=== PATIENT | male | born 1970 | race Caucasian/White ===

== ENCOUNTER 2016-04-23 13:34 | Emergency (ER) | payer MEDICAID, OTHER ==
[~2016-04-23] VITALS: Ht 188 cm; Wt 108.9 kg
[~2016-04-23 13:34] MED LIST: CYCL10TA9 PO; HYDR-3816 PO; HYDR1TAB PO; NAPR-243 PO; NAPR250T34 PO; NAPR500T PO; OSLT75CRX PO; PRD20T PO; SLF10OP15 OP; SULF-222 PO; SULF1TAB35 PO; SULF1TAB38 PO; TRAM50TA2 PO; TRM50T PO; [UNRECOGNIZED DRUG - CODE] OD
[2016-04-23] MEDS ORDERED: HYDR-757 PO (13:48)
[2016-04-23] MEDS ORDERED: NAPR500T PO (13:48)
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
[2016-04-23 13:58] VITALS: BP 118/111
== END 2016-04-23 13:54 | disposition home or self-care (01) ==
LOC: EDUNIT# 13:34 → ER 13:37
DX: Z76.0 Encounter for issue of repeat prescription (principal); G89.18 Other acute postprocedural pain
CPT/HCPCS: 99283

== ENCOUNTER 2016-04-25 17:07 | Emergency (ER) | payer MEDICAID, OTHER ==
[~2016-04-25] VITALS: Ht 188 cm; Wt 108.9 kg
[~2016-04-25 17:07] MED LIST changes: +HYDR-757 PO
[2016-04-25] MEDS ORDERED: CEFD300C3 PO (17:19)
--- NOTE | 2016-04-25 17:19 | ED Lower Extremity ---
General Stated Complaint: RIGHT LEG INJ Source: patient Exam Limitations: no limitations History of Present Illness Time seen by provider: 17:15 Initial Comments To ER with right leg injury. He had a tibial plateau fracture with subsequent compartment syndrome and fasciotomy and placement of external fixation in [facility] on 04/13/16. He lives here and has traveled back. I saw him 2 days ago for a request to refill his oxycodone. He ultimately Hydrocodone No. 10 and did fill his Lovenox injections 40 mg daily prescribed for DVT prophylaxis by his surgeon in [place]. Today, he slipped and fell and now has pain at the insertion site of the external fixator pins in the tibia. He reports some slight redness to his leg. He states that he has been taking the Lovenox injections and Kristin confirmed that he did fill these. Onset: just prior to arrival Severity: moderate Pain/Injury Location: right leg Method of Injury: fell Modifying Factors: Worse With Movement Allergies and Home Medications Allergies Coded Allergies: No Known Drug Allergies (Unverified , 01/22/10) Home Medications Cefdinir 300 Mg Capsule #14 300 MG PO BID Prescribed by: MARK MORRIS on 04/25/16 1719 Hydrocodone/Acetaminophen 1 Each Tablet #10 1 EACH PO Q4H PRN PRN PAIN Do not fill under any circumstances unless his Lovenox prescription is also filled Prescribed by: MARK MORRIS on 04/23/16 1348 Naproxen 500 Mg Tablet #20 500 MG PO BID PRN PRN PAIN Prescribed by: BRET THAPA on 12/13/14 1442 Naproxen 500 Mg Tablet #30 500 MG PO BID Prescribed by: MARK MORRIS on 04/23/16 1348 Constitutional: see HPINo chills EENTM: see HPI Respiratory: no symptoms reported Cardiovascular: no symptoms reported Genitourinary: no symptoms reported Skin: no symptoms reported Psychiatric/Neurological: No Symptoms Reported Past Ueijewl-Lvwapp-Hjslee Hx Patient Social History Former Smoker/When Quit: September 05, 2014 Recent Foreign Travel: No Contact w/Someone Who Travel: No Recent Hopitalizations: Yes (2003) Immunizations Up To Date Tetanus Booster (TDap): Less than 5yrs Date of Influenza Vaccine: Jan 12, 2014 Seasonal Allergies Seasonal Allergies: No Surgeries HX Surgeries: Yes Surgeries: Abdominal, Bowel Surgery, Gallbladder, Orthopedic Respiratory Hx Respiratory Disorders: No Cardiovascular Hx Cardiac Disorders: No Neurological Hx Neurological Disorders: No Reproductive System Hx Reproductive Disorders: No Sexually Transmitted Disease: No Genitourinary Hx Genitourinary Disorders: No Gastrointestinal Hx Gastrointestinal Disorders: Yes (HEPATITIS--UNKNOWN TYPE) Gastrointestinal Disorders: Hepatitis Musculoskeletal Hx Musculoskeletal Disorders: Yes (SACRAL FX) Endocrine Hx Endocrine Disorders: No HEENT HX ENT Disorders: Yes (states he is hard of hearing left ear) Hearing Impairment: Hard of Hearing Cancer Hx Cancer: No Psychosocial Hx Psychiatric Problems: Yes (OVERDOSES) Behavioral Health Disorders: Suicide Attempts Integumentary HX Skin/Integumentary Disorder: Yes (MULTIPLE ABSCESSES) Blood Transfusions Hx Blood Disorders: No Family Medical History Family Medial History: Family history: Arthritis 03 FATHER 03 MOTHER Myocardial infarction 03 MOTHER Physical Exam Vital Signs Vital Sign - Last 12Hours 04/25/16 17:10 Temp 98.0 Pulse 89 Resp 18 B/P 169/104 Pulse Ox 97 O2 Delivery Room Air Capillary Refill : General Appearance: WD/WN no apparent distress HEENT: PERRL/EOMI normal ENT inspection Neck: non-tender full range of motion Respiratory: no respiratory distress no accessory muscle use Hips: bilateral hip non-tender, bilateral hip normal inspection, bilateral hip normal range of motion Legs: right leg other (slight erythema around the pins that insert to the tibia. No drainage from around the pens or from the medial fasciotomy incision which remains sutured closed and without erythema. Dorsalis pedis pulse is +2 capillary refill of the toes less than 2 seconds.) Knees: bilateral knee non-tender, bilateral knee normal inspection, bilateral knee normal range of motion Ankles: bilateral ankle non-tender, bilateral ankle normal inspection, bilateral ankle normal range of motion Feet: bilateral foot non-tender, bilateral foot normal inspection, bilateral foot normal range of motion Neurologic/Tendon: normal sensation normal motor functions Neurologic/Psychiatric: alert normal mood/affect oriented x 3 Skin: normal color warm/dry Progress/Results/Core Measures Results/Orders My Orders Orders-MARK MORRIS APRN Tibia/Fibula, Right, 2 Views (04/25/16 17:14) Vital Signs/I&O Vital Sign - Last 12Hours 04/25/16 17:10 Temp 98.0 Pulse 89 Resp 18 B/P 169/104 Pulse Ox 97 O2 Delivery Room Air Diagnostic Imaging Diagonstic Imaging: Xray Comments NAME: BRANDON AKERS [facility] REC#: [id number] PT STATUS: REG ER : 1970 PHYSICIAN: MARK MORRIS APRN ADMIT DATE: 04/25/16/ER Draft Date of Exam:04/25/16 TIBIA/FIBULA, RIGHT, 2 VIEWS EXAMINATION: Right tibia and fibula. INDICATION: Fell. FINDINGS: AP and lateral views were obtained. There are no prior studies available for comparison. There is a comminuted slightly displaced fracture of the proximal tibia. No other fracture or acute bony abnormality is identified. There is an orthopedic external fixation device along the anterior aspect of the tibia. Skin ashlee are also seen. IMPRESSION: 1. There is a comminuted slightly displaced fracture of the proximal tibia with an external fixation device in place. 2. There is no acute bony abnormality identified otherwise. Dictated on workstation # [id number] Dict: 04/25/16 1744 Trans: 04/25/16 1750 [id number] Interpreted by: LUIS ENRIQUE BARRON MD Electronically signed by: Departure Impression Impression: Primary Impression: Postoperative pain Disposition: HOME, SELF-CARE Condition: Stable Departure-Patient Inst. Decision time for Depature: 17:18 Referrals: [facility] (PCP/Family) Primary Care Physician Patient Instructions: NO INSTRUCTIONS GIVEN Add. Discharge Instructions: 1. Continue the current medications and start the antibiotics 2. Return to ER for any concerns 3. Follow-up with a local orthopedic surgeon from the list provided to you 2 days ago Scripts Cefdinir 300 Mg [id number] Mg PO BID #14 CAP Prov:MARK MORRIS APRN 04/25/16 MARK MORRIS APRN Apr 25, 2016 17:19
--- NOTE | 2016-04-25 17:50 | Diagnostic Imaging Report ---
EXAMINATION: Right tibia and fibula. INDICATION: Fell. FINDINGS: AP and lateral views were obtained. There are no prior studies available for comparison. There is a comminuted slightly displaced fracture of the proximal tibia. No other fracture or acute bony abnormality is identified. There is an orthopedic external fixation device along the anterior aspect of the tibia. Skin ashlee are also seen. IMPRESSION: 1. There is a comminuted slightly displaced fracture of the proximal tibia with an external fixation device in place. 2. There is no acute bony abnormality identified otherwise. Dictated by: Dictated on workstation # [id number]
[2016-04-25 17:56] VITALS: BP 169/104
== END 2016-04-25 17:56 | disposition home or self-care (01) ==
LOC: EDUNIT# 17:07 → ER 17:08
DX: G89.18 Other acute postprocedural pain (principal)
CPT/HCPCS: 73590

== ENCOUNTER 2016-04-27 14:36 | Emergency (ER) | payer MEDICAID ==
[~2016-04-27] VITALS: Ht 188 cm; Wt 81.6 kg
[~2016-04-27 14:36] MED LIST changes: +CEFD300C3 PO
[2016-04-27] MEDS ORDERED: KETOROLAC 60 MG/2 ML VIAL IM ONE ×2 (14:49→19:00)
[2016-04-27 15:22] VITALS: BP 141/88
== END 2016-04-27 15:22 | disposition home or self-care (01) ==
LOC: ER 14:36 → EDUNIT# 14:36 → ER 15:22
DX: S82.142D Displaced bicondylar fracture of left tibia, subsequent encounter for closed fracture with routine healing (principal); F15.10 Other stimulant abuse, uncomplicated
CPT/HCPCS: 80306; 96372; 99282

== ENCOUNTER 2016-05-27 18:35 | Emergency (ER) | payer MEDICAID, OTHER ==
[~2016-05-27] VITALS: Ht 188 cm; Wt 95.3 kg
[2016-05-27] MEDS ORDERED: ASPI-808 PO (19:07)
[2016-05-27] MEDS ORDERED: ACET325T38 PO (19:07)
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
--- NOTE | 2016-05-27 20:59 | Diagnostic Imaging Report ---
INDICATION: External fixator fracture COMPARISON: 04/25/16 FINDINGS: Four views of the right tibia and fibula demonstrate external fixator device in place. Proximal tibia fracture is unchanged. The visualized ankle mortise is intact. IMPRESSION: 1. External fixator within the mid tibia. 2. Stable fracture. Dictated by: Dictated on workstation # [id number]
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
[2016-05-27] MEDS ORDERED: SULF1TAB35 PO (21:14)
[2016-05-27] MEDS ORDERED: MINO100C2 PO (21:14)
[2016-05-27 21:22] VITALS: BP 132/87
== END 2016-05-27 21:22 | disposition home or self-care (01) ==
LOC: EDUNIT# 18:35 → ER 18:37
DX: L03.115 Cellulitis of right lower limb (principal); S82.101D Unspecified fracture of upper end of right tibia, subsequent encounter for closed fracture with routine healing; Z97.8 Presence of other specified devices; Z98.890 Other specified postprocedural states; F17.210 Nicotine dependence, cigarettes, uncomplicated; Z79.82 Long term (current) use of aspirin; Z79.899 Other long term (current) drug therapy
CPT/HCPCS: 73552; 73590; 87070; 87077; 87186; 87205; 99282

== ENCOUNTER 2016-06-13 05:33 | Outpatient (CLI) | payer MEDICAID ==
[~2016-06-13] VITALS: Ht 188 cm; Wt 98.0 kg
[~2016-06-13 05:33] MED LIST changes: +ACET325T38 PO; +ASPI-808 PO; +MINO100C2 PO
--- OUTSIDE RECORDS SUMMARY | 2016-06-13 05:38 | XMS REPORT | Continuity of Care Document ---
Author Author [facility] Address Unknown Phone Unavailable Allergies Active Description Code Type Severity Reaction Onset Reported/Identified Relationship to Patient Clinical Status Yes No Known Drug Allergies [id number] Drug Allergy Unknown N/ A 10/10/2009 Medications Problems Date Dx Coded Attending Type Code Diagnosis Diagnosed By 10/10/2009 Ot 372.06 10/10/2009 Ot 372.30 10/10/2009 Ot 379.93 02/14/2010 Ot 845.00 02/14/2010 Ot 959.7 02/14/2010 Ot E000.8 02/14/2010 Ot E849.0 02/14/2010 Ot E917.4 12/16/2010 Ot 070.54 CHRONIC HEPATITIS C W/O HEPATIC COMA 12/16/2010 Ot 305.1 TOBACCO USE DISORDER 12/16/2010 Ot 305.20 CANNABIS ABUSE-UNSPEC 12/16/2010 Ot 305.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 ABUSE-UNSPEC 12/16/2010 Ot 977.9 POISON-MEDICINAL AGT NOS 12/16/2010 Ot E849.0 ACCIDENT IN HOME 12/16/2010 Ot E950.5 SUICIDE-DRUG/MEDICIN NOS 01/09/2011 ROSA ISELA TAPIA DO 070.70 HEPATITIS, C VIRUS 01/09/2011 ROSA ISELA TAPIA DO 305.1 NICOTINE DEPENDENCE 01/09/2011 ROSA ISELA TAPIA DO K 305.90 SUBSTANCE USE DISORDERS 01/09/2011 ROSA ISELA TAPIA DO K 780.99 loss of pleasure from usual activities ( anhedonia) 01/09/2011 ROSA ISELA TAPIA DO K V04.81 Vaccines Prophylactic Need Against Influenza 01/09/2011 VLAD KENNY APRN R 070.70 HEPATITIS, C VIRUS 01/09/2011 EFRAÍN GRIMES VLAD R 305.1 NICOTINE DEPENDENCE 01/09/2011 VLAD KENNY APRN R 305.90 SUBSTANCE USE DISORDERS 01/09/2011 VLAD KENNY APRN R 780.99 loss of pleasure from usual activities ( anhedonia) 01/09/2011 EFRAÍN TRAVERTINE INSTALLER, VLAD R V04.81 Vaccines Prophylactic Need Against Influenza 01/09/2011 LEV TORIBIOF, CIRA W 070.70 HEPATITIS, C VIRUS 01/09/2011 LEV TORIBIOKaren, CIRA W 305.1 NICOTINE DEPENDENCE 01/09/2011 LEV TORIBIOF, CIRA W 305.90 SUBSTANCE USE DISORDERS 01/09/2011 LEV [facility], CIRA W 780.99 loss of pleasure from usual activities (anhedonia) 01/09/2011 LEV [facility], CIRA Burk V04.81 Vaccines Prophylactic Need Against Influenza 07/09/2011 TAPIA ROSA ISELA HWANG Roddy 305.00 NONDEPENDENT ALCOHOL ABUSE UNSPECIFIED DRINKING BEHAVIOR 07/09/2011 VLAD KENNY APRN R 305.00 NONDEPENDENT ALCOHOL ABUSE UNSPECIFIED DRINKING BEHAVIOR 07/09/2011 LEV TORIBIO, CIRA W 305.00 NONDEPENDENT ALCOHOL ABUSE UNSPECIFIED DRINKING BEHAVIOR 01/28/2012 Ot 692.9 DERMATITIS NOS 01/28/2012 Ot 782.1 NONSPECIF SKIN ERUPT NEC 12/26/2012 MARK MORRIS TRAVERTINE INSTALLER Ot 274.00 GOUTY ARTHROPATHY, UNSPECIFIED 12/26/2012 MARK MORRIS TRAVERTINE INSTALLER Ot 719.07 JOINT EFFUSION-ANKLE 03/12/2013 BRET GAMEZ Ot 611.0 INFLAM DISEASE OF BREAST 03/12/2013 BRET GAMEZ Ot 611.71 MASTODYNIA 03/14/2013 MARK MORRIS TRAVERTINE INSTALLER Ot 706.2 SEBACEOUS CYST 03/23/2013 NELLIE MELENDEZ DO Ot 611.0 INFLAM DISEASE OF BREAST 05/20/2013 MARK MORRIS TRAVERTINE INSTALLER Ot 305.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 ABUSE-UNSPEC 05/20/2013 MARK MORRIS TRAVERTINE INSTALLER Ot 487.1 FLU W RESP MANIFEST NEC 05/20/2013 MARK MORRIS TRAVERTINE INSTALLER Ot 780.60 FEVER, UNSPECIFIED 09/10/2013 BRET GAMEZ Ot 305.1 TOBACCO USE DISORDER 09/10/2013 BRET GAMEZ Ot 840.9 SPRAIN SHOULDER/ARM NOS 09/10/2013 BRET GAMEZ Ot 923.11 CONTUSION OF ELBOW 09/10/2013 BRET GAMEZ Ot E029.9 OTHER ACTIVITY 09/10/2013 BRET GAMEZ Ot E885.0 FALL FROM (NONMOTORIZED) SCOOTER 01/28/2014 MARK MORRIS APRN Ot 784.0 HEADACHE 05/11/2014 EFRAÍN GRIMES VLAD R V69.9 UNSPECIFIED PROBLEM RELATED TO LIFESTYLE 05/11/2014 LEV TORIBIOMF, CIRA W V69.9 UNSPECIFIED PROBLEM RELATED TO LIFESTYLE 05/30/2014 LEV [facility], CIRA W 296.90 MOOD DISORDER NOS 05/30/2014 LEV TORIBIOF, CIRA W 304.80 SA POLYSUB DEP 09/04/2014 ARIADNE GALARZA MD Ot 805.6 FX SACRUM/COCCYX-CLOSED 09/04/2014 ARIADNE GALARZA MD Ot 959.19 OTH INJURY OF OTHER SITES OF TRUNK 09/04/2014 ARIADNE GALARZA MD Ot E000.8 OTHER EXTERNAL CAUSE STATUS 09/04/2014 ARIADNE GALARZA MD Ot E849.0 ACCIDENT IN HOME 09/04/2014 ARIADNE GALARZA MD Ot E882 FALL FROM BUILDING 09/18/2014 Ot 070.70 09/18/2014 Ot 305.00 09/18/2014 NELLIE MELENDEZ DO Ot 611.72 09/18/2014 KYA BANG MD Ot 883.0 OPEN WOUND OF FINGER 09/18/2014 KYA BANG MD Ot E849.0 ACCIDENT IN HOME 09/18/2014 KYA BANG MD Ot E906.0 DOG BITE 09/18/2014 KYA BANG MD Ot V06.5 TETANUS-DIPHTHERIA [TD][DT] 09/18/2014 Ot 070.70 09/18/2014 Ot 305.00 09/18/2014 NELLIE MELENDEZ DO Ot 611.72 12/07/2014 Ot 070.70 12/07/2014 Ot 305.00 12/07/2014 NELLIE MELENDEZ DO Ot 611.72 12/07/2014 BRET GAMEZ Ot 611.0 INFLAM DISEASE OF BREAST 12/13/2014 BRET GAMEZ Ot 611.0 INFLAM DISEASE OF BREAST 12/26/2014 Ot 070.70 12/26/2014 Ot 305.00 12/26/2014 MELENDEZ NELLIE D Ot 611.72 12/26/2014 Ot 070.70 12/26/2014 Ot 305.00 12/26/2014 MELENDEZ NELLIE HWANG Ot 611.72 02/14/2015 Ot 070.70 02/14/2015 Ot 305.00 02/14/2015 NELLIE MELENDEZ DO Ot 611.72 10/06/2015 ARIADNE GALARZA MD Ot 805.6 FX SACRUM/COCCYX-CLOSED 10/06/2015 ARIADNE GALARZA MD Ot 959.19 OTH INJURY OF OTHER SITES OF TRUNK 10/06/2015 ARIADNE GALARZA MD Ot E000.8 OTHER EXTERNAL CAUSE STATUS 10/06/2015 ARIADNE GALARZA MD Ot E849.0 ACCIDENT IN HOME 10/06/2015 ARIADNE GALARZA MD Ot E882 FALL FROM BUILDING 02/10/2016 Ot 070.70 UNSPECIFIED VIRAL HEPATITIS C WITHOUT HE 02/10/2016 Ot 305.00 ALCOHOL ABUSE-UNSPEC 02/10/2016 NELLIE MELENDEZ DO Ot 611.72 LUMP OR MASS IN BREAST 02/10/2016 Ot 070.70 UNSPECIFIED VIRAL HEPATITIS C WITHOUT HE 02/10/2016 Ot 305.00 ALCOHOL ABUSE-UNSPEC 02/10/2016 NELLIE MELENDEZ DO Ot 611.72 LUMP OR MASS IN BREAST 02/12/2016 TITA REEVES DO, Ot F17.210 NICOTINE DEPENDENCE, CIGARETTES, UNCOMPL 02/12/2016 TITA REEVES DO Ot S10.96XA INSECT BITE OF UNSPECIFIED PART OF NECK, 02/12/2016 TITA REEVES DO Ot S30.861A INSECT BITE (NONVENOMOUS) OF ABDOMINAL W 02/12/2016 TITA REEVES DO, Ot S40.861A INSECT BITE (NONVENOMOUS) OF RIGHT UPPER 02/12/2016 TITA REEVES DO, Ot S40.862A INSECT BITE (NONVENOMOUS) OF LEFT UPPER 02/12/2016 TITA REEVES DO, Ot W57.XXXA BIT/STUNG BY NONVENOM INSECT OTH NONVE 02/12/2016 TITA REEVES DO Ot Y92.[address] OR NOT APPLICABLE 02/12/2016 TITA REEVES DO Ot Y93.H9 ACTVTY,OTH W EXTER PROPERTY LAND [facility] EYE INSTITUTET 02/12/2016 TITA REEVES DO Ot Y99.8 OTHER EXTERNAL CAUSE STATUS 04/24/2016 MARK MORRIS APRN Ot G89.18 OTHER ACUTE POSTPROCEDURAL PAIN 04/24/2016 MARK MORRIS APRN Ot Z76.0 ENCOUNTER FOR ISSUE OF REPEAT PRESCRIPTI 04/25/2016 MARK MORRIS APRN Ot G89.18 OTHER ACUTE POSTPROCEDURAL PAIN 04/26/2016 MARK MORIRS APRN Ot G89.18 OTHER ACUTE POSTPROCEDURAL PAIN 04/27/2016 MARK MORRIS APRN Ot G89.18 OTHER ACUTE POSTPROCEDURAL PAIN 04/27/2016 ARIADNE GALARZA MD Ot F15.10 OTHER STIMULANT ABUSE, UNCOMPLICATED 04/27/2016 ARIADNE GALARZA MD Ot S82.142D DISPL BICONDYLAR FX L TIBIA, SUBS FOR CL 05/27/2016 BRET GAMEZ Ot F17.210 NICOTINE DEPENDENCE, CIGARETTES, UNCOMPL 05/27/2016 BRET GAMEZ Ot L03.115 CELLULITIS OF RIGHT LOWER LIMB 05/27/2016 BRET GAMEZ Ot S82.101D UNSP FX UPPER END OF R TIBIA, SUBS FOR C 05/27/2016 BRET GAMEZ Ot Z79.82 DETENTION (CURRENT) USE OF ASPIRIN 05/27/2016 BRET GAMEZ Ot Z79.899 OTHER DETENTION (CURRENT) DRUG THERAPY 05/27/2016 BRET GAMEZ Ot Z97.8 PRESENCE OF OTHER SPECIFIED DEVICES 05/27/2016 BRET GAMEZ Ot Z98.890 OTHER SPECIFIED POSTPROCEDURAL STATES 05/29/2016 BRET GAMEZ Ot F17.210 NICOTINE DEPENDENCE, CIGARETTES, UNCOMPL 05/29/2016 BRET GAMEZ Ot L03.115 CELLULITIS OF RIGHT LOWER LIMB 05/29/2016 BRET GAMEZ Ot S82.101D UNSP FX UPPER END OF R TIBIA, SUBS FOR C 05/29/2016 BRET GAMEZ Ot Z79.82 DETENTION (CURRENT) USE OF ASPIRIN 05/29/2016 BRET GAMEZ Ot Z79.899 OTHER DETENTION (CURRENT) DRUG THERAPY 05/29/2016 BRET GAMEZ Ot Z97.8 PRESENCE OF OTHER SPECIFIED DEVICES 05/29/2016 BRET GAMEZ Ot Z98.890 OTHER SPECIFIED POSTPROCEDURAL STATES 05/30/2016 BRET GAMEZ Ot F17.210 NICOTINE DEPENDENCE, CIGARETTES, UNCOMPL 05/30/2016 BRET GAMEZ Ot L03.115 CELLULITIS OF RIGHT LOWER LIMB 05/30/2016 BRET GAMEZ Ot S82.101D UNSP FX UPPER END OF R TIBIA, SUBS FOR C 05/30/2016 BRET GAMEZ Ot 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 05/30/2016 BRET GAMEZ Ot Z79.899 OTHER DETENTION (CURRENT) DRUG THERAPY 05/30/2016 BRET GAMEZ Ot Z97.8 PRESENCE OF OTHER SPECIFIED DEVICES 05/30/2016 BRET GAMEZ Ot Z98.890 OTHER SPECIFIED POSTPROCEDURAL STATES Procedures Code Description [place] [address] PSYCH DIAGNOSTIC EVALUATION 05/30/2014 Results Test Result Range Urine drug screening test - 04/27/16 14:50 Urine phencyclidine detection by screening method NEGATIVE NEGATIVE Urine benzodiazepines detection by screening method POSITIVE NEGATIVE Urine cocaine detection NEGATIVE NEGATIVE Urine amphetamines detection by screening method POSITIVE NEGATIVE Urine methamphetamine detection by screening method POSITIVE NEGATIVE Urine cannabinoids detection by screening method POSITIVE NEGATIVE Urine opiates detection by screening method POSITIVE NEGATIVE Urine barbiturates detection NEGATIVE NEGATIVE Screening urine tricyclic antidepressants detection NEGATIVE NEGATIVE Urine methadone detection by screening method NEGATIVE NEGATIVE Urine oxycodone detection NEGATIVE NEGATIVE Urine propoxyphene detection NEGATIVE NEGATIVE Gram stain microscopy - 05/27/16 21:00 GRAM STAIN RESULT FEW GRAM POSITIVE COCCI RESEMBLING STAPH NRG Bacteria identification in wound by culture - 05/27/16 21:00 Bacteria identification in wound by culture [id number] NR FREE TEXT EXTERNAL SENSITIVITY REPORTED 05/29/16 10:50 NRG QUANTITY OF GROWTH Moderate Growth NRG Bacterial susceptibility panel - 05/27/16 21:00 Oxacillin susceptibility test by minimum inhibitory concentration <= NRG Gentamicin susceptibility test by minimum inhibitory concentration <= NRG Clindamycin susceptibility test by minimum inhibitory concentration <= NRG Erythromycin susceptibility test by minimum inhibitory concentration <= NRG Trimethoprim/sulfamethoxazole susceptibility test by minimum inhibitoryconcentration <= NRG Vancomycin susceptibility test by minimum inhibitory concentration <= NRG Levofloxacin susceptibility test by minimum inhibitory concentration <= NRG Rifampin susceptibility test by minimum inhibitory concentration <= NRG Tetracycline susceptibility test by minimum inhibitory concentration <= NRG Encounters ACCT No. Visit Date/Time Discharge Status Pt. Type Provider Facility Loc./Unit Complaint [id number] 05/30/2014 09:53:00 05/30/2014 23: 59:59 CLS Outpatient CIRA YOO [id number] 05/13/2014 14:14:00 05/13/2014 23: 59:59 CLS Outpatient VLAD KENNY APRN [id number] 01/15/2012 09:32:00 01/15/2012 23: 59:59 CLS Outpatient ROSA ISELA TAPIA DO
[2016-06-13 11:08] VITALS: BP 127/77
== END 2016-06-13 11:00 | disposition home or self-care (01) ==
LOC: PREOP 05:33
PROVIDERS: ATTEND Orthopaedic Surgery Orthopaedic Surgery of the Spine
DX: Z01.818 Encounter for other preprocedural examination (principal); Z11.2 Encounter for screening for other bacterial diseases; S82.101D Unspecified fracture of upper end of right tibia, subsequent encounter for closed fracture with routine healing
CPT/HCPCS: 87081

== ENCOUNTER 2016-06-17 11:26 | Day surgery (SDC) | payer MEDICAID, OTHER ==
[~2016-06-17] VITALS: Ht 188 cm; Wt 98.0 kg
--- OUTSIDE RECORDS SUMMARY | 2016-06-17 11:30 | XMS REPORT | Continuity of Care Document ---
Author Author [facility] Address Unknown Phone Unavailable Allergies Active Description Code Type Severity Reaction Onset Reported/Identified Relationship to Patient Clinical Status Yes No Known Drug Allergies [id number] Drug Allergy Unknown N/ A 10/10/2009 Medications [...] from usual activities ( anhedonia) 01/09/2011 EFRAÍN RADIOTELEGRAPH OPERATOR, VLAD R V04.81 Vaccines Prophylactic Need Against Influenza 01/09/2011 LEV TORIBIOF, CIRA W 070.70 HEPATITIS, C VIRUS 01/09/2011 LEV TORIBIOKaren, CIRA W 305.1 NICOTINE DEPENDENCE 01/09/2011 LEV TORIBIOF, CIRA W 305.90 SUBSTANCE USE DISORDERS 01/09/2011 LEV [facility], CIRA W 780.99 loss of pleasure from usual activities (anhedonia) 01/09/2011 LEV [facility], CIRA Burk V04.81 Vaccines Prophylactic Need Against Influenza 07/09/2011 TAPIA ROSA ISELA HWANG Roddy 305.00 NONDEPENDENT ALCOHOL ABUSE UNSPECIFIED DRINKING BEHAVIOR 07/09/2011 VLAD KENNY APRN R 305.00 NONDEPENDENT ALCOHOL ABUSE UNSPECIFIED DRINKING BEHAVIOR 07/09/2011 LEV TORIBIO, CIRA W 305.00 NONDEPENDENT ALCOHOL ABUSE UNSPECIFIED DRINKING BEHAVIOR 01/28/2012 Ot 692.9 DERMATITIS NOS 01/28/2012 Ot 782.1 NONSPECIF SKIN ERUPT NEC 12/26/2012 MARK MORRIS RADIOTELEGRAPH OPERATOR Ot 274.00 GOUTY ARTHROPATHY, UNSPECIFIED 12/26/2012 MARK MORRIS RADIOTELEGRAPH OPERATOR Ot 719.07 JOINT EFFUSION-ANKLE 03/12/2013 BRET GAMEZ Ot 611.0 INFLAM DISEASE OF BREAST 03/12/2013 BRET GAMEZ Ot 611.71 MASTODYNIA 03/14/2013 MARK MORRIS RADIOTELEGRAPH OPERATOR Ot 706.2 SEBACEOUS CYST 03/23/2013 NELLIE MELENDEZ DO Ot 611.0 INFLAM DISEASE OF BREAST 05/20/2013 MARK MORRIS RADIOTELEGRAPH OPERATOR Ot 305.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 ABUSE-UNSPEC 05/20/2013 MARK MORRIS RADIOTELEGRAPH OPERATOR Ot 487.1 FLU W RESP MANIFEST NEC 05/20/2013 MARK MORRIS RADIOTELEGRAPH OPERATOR Ot 780.60 FEVER, UNSPECIFIED 09/10/2013 BRET GAMEZ [...] 12/26/2014 Ot 070.70 12/26/2014 Ot 305.00 12/26/2014 NELLIE MELENDEZ DO Ot 611.72 12/26/2014 Ot 070.70 12/26/2014 Ot 305.00 12/26/2014 NELLIE MELENDEZ DO Taj Ot 611.72 02/14/2015 Ot 070.70 02/14/2015 Ot 305.00 02/14/2015 AL HWANG NELLIE D Ot 611.72 10/06/2015 ARIADNE GALARZA MD Ot [...] HE 02/10/2016 Ot 305.00 ALCOHOL ABUSE-UNSPEC 02/10/2016 MELENDEZ NELLIE Taj Ot 611.72 LUMP OR MASS IN BREAST 02/10/2016 TITA REEVES DO Ot F17.210 NICOTINE DEPENDENCE, CIGARETTES, UNCOMPL 02/10/2016 TITA REEVES DO Ot S10.96XA INSECT BITE OF UNSPECIFIED PART OF NECK, 02/10/2016 TITA REEVES DO Ot S30.861A INSECT BITE (NONVENOMOUS) OF ABDOMINAL W 02/10/2016 TITA REEVES DO Ot S40.861A INSECT BITE (NONVENOMOUS) OF RIGHT UPPER 02/10/2016 TITA REEVES DO Ot S40.862A INSECT BITE (NONVENOMOUS) OF LEFT UPPER 02/10/2016 TITA REEVES DO Ot W57.XXXA BIT/STUNG BY NONVENOM INSECT OTH NONVE 02/10/2016 TITA REEVES DO Ot Y92.[address] OR NOT APPLICABLE 02/10/2016 TITA REEVES DO Ot Y93.H9 ACTVTY,OTH W EXTER PROPERTY LAND MAINT 02/10/2016 TITA REEVES DO Ot Y99.8 OTHER EXTERNAL CAUSE STATUS 02/10/2016 Ot 070.70 UNSPECIFIED VIRAL HEPATITIS C WITHOUT HE 02/10/2016 Ot 305.00 ALCOHOL ABUSE-UNSPEC 02/10/2016 NELLIE MELENDEZ DO Ot 611.72 LUMP OR MASS IN BREAST 02/12/2016 [place] TITA Roddy Ot F17.210 NICOTINE DEPENDENCE, CIGARETTES, UNCOMPL 02/12/2016 [place] TITA Pereyra Ot S10.96XA INSECT BITE OF UNSPECIFIED PART OF NECK, 02/12/2016 [place] , TITA Pereyra Ot S30.861A INSECT BITE (NONVENOMOUS) OF ABDOMINAL W 02/12/2016 [facility], TITA Roddy Ot S40.861A INSECT BITE (NONVENOMOUS) OF RIGHT UPPER 02/12/2016 [facility], TITA Pereyra Ot S40.862A INSECT BITE (NONVENOMOUS) OF LEFT UPPER 02/12/2016 [place] , TITA Roddy Ot W57.XXXA BIT/STUNG BY NONVENOM INSECT OTH NONVE 02/12/2016 [place] TITA Pereyra Ot Y92.[address] OR NOT APPLICABLE 02/12/2016 [place] TITA Pereyra Ot Y93.H9 ACTVTY,OTH W EXTER PROPERTY LAND MAINT 02/12/2016 LEANDRO TITA Pereyra Ot Y99.8 OTHER EXTERNAL CAUSE STATUS 04/23/2016 MARK MORRIS APRN Ot G89.18 OTHER ACUTE POSTPROCEDURAL PAIN 04/23/2016 MARK MORRIS APRN Ot Z76.0 ENCOUNTER FOR ISSUE OF REPEAT PRESCRIPTI 04/24/2016 MARK MORRIS APRN Ot G89.18 OTHER ACUTE POSTPROCEDURAL PAIN 04/24/2016 MARK MORRIS APRN Ot Z76.0 ENCOUNTER FOR ISSUE OF REPEAT PRESCRIPTI 04/25/2016 MARK MORRIS APRN Ot G89.18 OTHER ACUTE POSTPROCEDURAL PAIN 04/26/2016 MARK MORRIS APRN Ot G89.18 OTHER ACUTE [...] FOR C 05/27/2016 BRET GAMEZ Ot 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.82 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 DETECTOR 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 (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) USE OF ASPIRIN 05/27/2016 BRET GAMEZ Ot Z79.899 OTHER SHELTER (CURRENT) DRUG THERAPY 05/27/2016 BRET GAMEZ Ot Z97.8 PRESENCE OF OTHER SPECIFIED DEVICES 05/27/2016 BRET GAMEZ Ot Z98.890 OTHER SPECIFIED POSTPROCEDURAL STATES 05/29/2016 BRET GAMEZ Ot F17.210 NICOTINE DEPENDENCE, CIGARETTES, UNCOMPL 05/29/2016 BRET GAMEZ Ot L03.115 CELLULITIS OF RIGHT LOWER LIMB 05/29/2016 BRET GAMEZ Ot S82.101D UNSP FX UPPER END OF R TIBIA, SUBS FOR C 05/29/2016 BRET GAMEZ Ot Z79.82 SHELTER (CURRENT) USE OF ASPIRIN 05/29/2016 BRET GAMEZ Ot Z79.899 OTHER SHELTER (CURRENT) DRUG THERAPY 05/29/2016 BRET GAMEZ Ot Z97.8 PRESENCE OF OTHER SPECIFIED DEVICES 05/29/2016 BRET GAMEZ Ot Z98.890 OTHER SPECIFIED POSTPROCEDURAL STATES 05/30/2016 BRET GAMEZ Ot F17.210 NICOTINE DEPENDENCE, CIGARETTES, UNCOMPL 05/30/2016 BRET GAMEZ Ot L03.115 CELLULITIS OF RIGHT LOWER LIMB 05/30/2016 BRET GAMEZ Ot S82.101D UNSP FX UPPER END OF R TIBIA, SUBS FOR C 05/30/2016 BRET GAMEZ Ot Z79.82 SHELTER (CURRENT) USE OF ASPIRIN 05/30/2016 BRET GAMEZ Ot Z79.899 OTHER SHELTER (CURRENT) DRUG THERAPY 05/30/2016 BRET GAMEZ Ot Z97.8 PRESENCE OF OTHER SPECIFIED DEVICES 05/30/2016 BRET GAMEZ Ot Z98.890 OTHER SPECIFIED POSTPROCEDURAL STATES 06/15/2016 MARK MORRIS APRN Ot G89.18 OTHER ACUTE POSTPROCEDURAL PAIN 06/15/2016 MARK MORRIS APRN Ot Z76.0 ENCOUNTER FOR ISSUE OF REPEAT PRESCRIPTI Procedures Code Description [place] [address] PSYCH DIAGNOSTIC EVALUATION 05/30/2014 Results Test Result [...] 21:00 Bacteria identification in wound by culture [id number] NRG FREE TEXT EXTERNAL SENSITIVITY REPORTED 05/29/16 10:50 [...] test by minimum inhibitory concentration <= NRG Methicillin resistant Staphylococcus aureus (MRSA) screening culture - 11:15 Methicillin resistant Staphylococcus aureus (MRSA) screening culture NEG NRG Encounters ACCT No. Visit Date/Time Discharge Status Pt. Type Provider Facility Loc./Unit Complaint [id number] 05/30/2014 09:53:00 05/30/2014 23: 59:59 CLS Outpatient [facility], CIRA W [id number] 05/13/2014 14:14:00 05/13/2014 23: 59:59 CLS Outpatient VLAD KENNY APRN [id number] 01/15/2012 09:32:00 01/15/2012 23: 59:59 CLS Outpatient ROSA ISELA TAPIA DO
--- OUTSIDE RECORDS SUMMARY | 2016-06-17 11:31 | XMS REPORT | Continuity of Care Document ---
Author Author [facility] Address Unknown Phone Unavailable Allergies Active Description Code Type Severity Reaction Onset Reported/Identified Relationship to Patient Clinical Status Yes No Known Drug Allergies [id number] Drug Allergy Unknown N/ A 10/10/2009 Medications [...] from usual activities ( anhedonia) 01/09/2011 EFRAÍN PHARMACY DIRECTOR, VLAD R V04.81 Vaccines Prophylactic Need Against Influenza 01/09/2011 LEV TORIBIOF, CIRA W 070.70 HEPATITIS, C VIRUS 01/09/2011 LEV TORIBIOKaren, CIRA W 305.1 NICOTINE DEPENDENCE 01/09/2011 LEV T[facility]IBIOF, CIRA W 305.90 SUBSTANCE USE DISORDERS 01/09/2011 LEV [facility], CIRA W 780.99 loss of pleasure from usual activities (anhedonia) 01/09/2011 LEV [facility], CIRA Burk V04.81 Vaccines Prophylactic Need Against Influenza 07/09/2011 TAPIA ROSA ISELA HWANG Roddy 305.00 NONDEPENDENT ALCOHOL ABUSE UNSPECIFIED DRINKING BEHAVIOR 07/09/2011 VLAD KENNY APRN R 305.00 NONDEPENDENT ALCOHOL ABUSE UNSPECIFIED DRINKING BEHAVIOR 07/09/2011 LEV TORIBIO, CIRA W 305.00 NONDEPENDENT ALCOHOL ABUSE UNSPECIFIED DRINKING BEHAVIOR 01/28/2012 Ot 692.9 DERMATITIS NOS 01/28/2012 Ot 782.1 NONSPECIF SKIN ERUPT NEC 12/26/2012 MARK MORRIS PHARMACY DIRECTOR Ot 274.00 GOUTY ARTHROPATHY, UNSPECIFIED 12/26/2012 MARK MORRIS PHARMACY DIRECTOR Ot 719.07 JOINT EFFUSION-ANKLE 03/12/2013 BRET GAMEZ Ot 611.0 INFLAM DISEASE OF BREAST 03/12/2013 BRET GAMEZ Ot 611.71 MASTODYNIA 03/14/2013 MARK MORRIS PHARMACY DIRECTOR Ot 706.2 SEBACEOUS CYST 03/23/2013 NELLIE MELENDEZ DO Ot 611.0 INFLAM DISEASE OF BREAST 05/20/2013 MARK MRORIS PHARMACY DIRECTOR Ot 305.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 ABUSE-UNSPEC 05/20/2013 MARK MORRIS PHARMACY DIRECTOR Ot 487.1 FLU W RESP MANIFEST NEC 05/20/2013 MARK MORRIS PHARMACY DIRECTOR Ot 780.60 FEVER, UNSPECIFIED 09/10/2013 BRET GAMEZ [...] 611.72 LUMP OR MASS IN BREAST 02/12/2016 IN[facility]STRY TITA Roddy Ot F17.210 NICOTINE DEPENDENCE, CIGARETTES, UNCOMPL 02/12/2016 INDUSTRY TITA Pereyra Ot S10.96XA INSECT BITE OF UNSPECIFIED PART OF NECK, 02/12/2016 [facility] , TITA Pereyra Ot S30.861A INSECT BITE (NONVENOMOUS) OF ABDOMINAL W 02/12/2016 [facility], TITA Roddy Ot S40.861A INSECT BITE (NONVENOMOUS) OF RIGHT UPPER 02/12/2016 [facility], TITA Pereyra Ot S40.862A INSECT BITE (NONVENOMOUS) OF LEFT UPPER 02/12/2016 [facility] , TITA Roddy Ot W57.XXXA BIT/STUNG BY NONVENOM INSECT OTH NONVE 02/12/2016 INDUSTRY TITA Pereyra Ot Y92.[address] OR NOT APPLICABLE 02/12/2016 INDUSTRY TITA Pereyra Ot Y93.H9 ACTVTY,OTH W EXTER [...] CELLULITIS OF RIGHT LOWER LIMB 05/27/2016 BRET GAEMZ Ot S82.101D UNSP FX UPPER END OF R TIBIA, SUBS FOR C 05/27/2016 BRET GAMEZ Ot 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 05/27/2016 BRET GAMEZ Ot Z79.899 OTHER CORRECTION (CURRENT) DRUG THERAPY 05/27/2016 BRET GAMEZ Ot Z97.8 PRESENCE OF OTHER SPECIFIED DEVICES 05/27/2016 BRET GAMEZ Ot Z98.890 OTHER SPECIFIED POSTPROCEDURAL STATES 05/29/2016 BRET GAMEZ Ot F17.210 NICOTINE DEPENDENCE, CIGARETTES, UNCOMPL 05/29/2016 BRET GAMEZ Ot L03.115 CELLULITIS OF RIGHT LOWER LIMB 05/29/2016 BRET GAMEZ Ot S82.101D UNSP FX UPPER END OF R TIBIA, SUBS FOR C 05/29/2016 BRET GAMEZ Ot Z79.82 CORRECTION (CURRENT) USE OF ASPIRIN 05/29/2016 BRET GAMEZ Ot Z79.899 OTHER CORRECTION (CURRENT) DRUG THERAPY 05/29/2016 BERT GAMEZ Ot Z97.8 PRESENCE OF OTHER SPECIFIED DEVICES 05/29/2016 BRET GAMEZ Ot Z98.890 OTHER SPECIFIED POSTPROCEDURAL STATES 05/30/2016 BRET GAMEZ Ot F17.210 NICOTINE DEPENDENCE, CIGARETTES, UNCOMPL 05/30/2016 BRET GAMEZ Ot L03.115 CELLULITIS OF RIGHT LOWER LIMB 05/30/2016 BRET GAMEZ Ot S82.101D UNSP FX UPPER END OF R TIBIA, SUBS FOR C 05/30/2016 BRET GAMEZ Ot Z79.82 CORRECTION (CURRENT) USE OF ASPIRIN 05/30/2016 BRET GAMEZ Ot Z79.899 OTHER CORRECTION (CURRENT) DRUG THERAPY 05/30/2016 BRET GAMEZ Ot Z97.8 PRESENCE OF OTHER SPECIFIED DEVICES 05/30/2016 BRET GAMEZ Ot Z98.890 OTHER SPECIFIED POSTPROCEDURAL STATES 06/15/2016 MARK MORRIS APRN Ot G89.18 OTHER ACUTE POSTPROCEDURAL PAIN 06/15/2016 MARK MORRIS APRN Ot Z76.0 ENCOUNTER FOR ISSUE OF REPEAT PRESCRIPTI Procedures Code [place] [address] PSYCH DIAGNOSTIC EVALUATION 05/30/2014 Results Test Result [...] 21:00 Bacteria identification in wound by culture [id number] NRG FREE TEXT EXTERNAL SENSITIVITY REPORTED 05/29/16 [...] Status Pt. Type Provider Facility Loc./Unit Complaint [id number] 05/30/2014 09:53:00 05/30/2014 23: 59:59 CLS Outpatient LEV LCM[facility], CIRA W [id number] 05/13/2014 14:14:00 05/13/2014 23: 59:59 CLS Outpatient VLAD KENNY APRN [id number] 01/15/2012 09:32:00 01/15/2012 23: 59:59 CLS Outpatient ROSA ISELA TAPIA DO
[2016-06-17 11:40] VITALS: BP 147/97
[2016-06-17] MEDS ORDERED: ceFAZolin 1 GM/NS 50 ML IVPB IV ONE ×2 (11:45)
[2016-06-17] MEDS ORDERED: TRAZ300T3 PO (12:10)
[2016-06-17] MEDS ORDERED: LACTATED RINGERS 1,000 ML IV PRN (12:23)
[2016-06-17] MEDS ORDERED: fentaNYL INJECTION 100 MCG/2 ML AMP ONE (12:41)
[2016-06-17] MEDS ORDERED: proPOfol 200 MG/20 ML (DIPRIVAN) VIAL IV ONE (12:41)
[2016-06-17] MEDS ORDERED: LIDOCAINE PF 2% 10 ML (XYLOCAINE) AMP ONE (12:41)
[2016-06-17] MEDS ORDERED: ONDANSETRON 4 MG/2 ML (SDV) Z0FRAN ONE (12:41)
[2016-06-17] MEDS ORDERED: MIDAZOLAM 2 MG/2 ML (VERSED) VIAL ONE (12:41)
[2016-06-17] MEDS ORDERED: SEVOFLURANE (ULTANE) 15 ML INHAL SOLN ONE ×2 (12:41→13:14)
[2016-06-17] MEDS ORDERED: LACTATED RINGERS 1,000 ML IV ONE (12:41)
[2016-06-17] MEDS ORDERED: GENTAMICIN 40 MG/ML 2 ML INJ SDV ONE (12:57)
--- NOTE | 2016-06-17 13:15 | Progress Note-Post Operative ---
Post-Operative Progess Note Snuff Drier Addison Farooq, SUNI Pre-Operative Diagnosis RIGHT TIBIAL FRACTURE Post-Operative Diagnosis Same Post-Op Procedure Note Date of Procedure: Jun 17, 2016 Name of Procedure: Ex fix removal Procedure Note/Findings Fx Anesthesia Type LMA Estimated blood loss (mL): Min MAURI ARGUETA MD Jun 17, 2016 1:15 pm
[2016-06-17] MEDS ORDERED: morphine INJ 10 MG/ML 1ML (SYR OR VIAL) IV PRN (13:45)
[2016-06-17] MEDS ORDERED: fentaNYL INJECTION 100 MCG/2 ML AMP IV PRN (13:45)
[2016-06-17] MEDS ORDERED: ONDANSETRON 4 MG/2 ML (SDV) Z0FRAN IV ONE (13:45)
[2016-06-17 14:10] VITALS: BP 158/95
[2016-06-17 14:40] VITALS: BP 149/90
[2016-06-17 15:10] VITALS: BP 143/96
[2016-06-17] MEDS ORDERED: HYDROcodone/APAP 5 MG/325 MG (LORTAB) TAB ONE (15:16)
[2016-06-17 15:17] VITALS: BP 143/96
[2016-06-17] MEDS ORDERED: HYDR-3812 PO ×2 (15:20→15:43)
[2016-06-17] MEDS ORDERED: SULF1TAB35 PO ×2 (15:20→15:43)
[2016-06-17] MEDS ORDERED: HYDROcodone/APAP 5 MG/325 MG (LORTAB) TAB PO ONE (15:30)
[2016-06-17 15:58] VITALS: BP 143/96
--- NOTE | 2016-06-17 18:05 | Diagnostic Imaging Report ---
Indication: Followup right tibial fracture. Discussion: Fluoroscopic support was provided during intraoperative external fixator hardware removal. Please see the operative report for full detail. Fluoroscopy time: 5 seconds. Impression: 1. Intraoperative hardware removal from the right lower extremity. Dictated by: Dictated on workstation # [id number]
--- NOTE | 2016-06-18 13:11 | OPERATIVE REPORT ---
PROCEDURE PHYSICIAN: MAURI ARGUETA DATE OF PROCEDURE: 06/17/2016 PREOPERATIVE DIAGNOSIS: Right tibial plateau fracture. POSTOPERATIVE DIAGNOSIS: Right tibial plateau fracture. PROCEDURE PERFORMED: Removal of expanding uniplanar external fixator right knee DATE AND TIME OF TIME OF SURGERY: Please see anesthesia record. SURGEON: E[place] [employer] MARKETING SPECIALIST: RAMIN Chambers. Role of clinical lab assistant is aid in removal and wound closure. ANESTHESIA: The LMA. COMPLICATIONS: None. INDICATION FOR THE PROCEDURE: Mr. Kaplan is a 46-year-old male who sustained an injury down in [place]. He had a expanding external fixator placed on his knee. There was some difficulty in follow-up and arrived in the ER about 2 weeks ago and I inherited the patient. Risks, benefits and alternatives were discussed and we elected to proceed with external fixator removal at this point. DESCRIPTION OF PROCEDURE: The patient was taken to the preoperative holding area. LMA anesthesia provided. Sterile prepped the right leg and the external fixture frame and pins were removed. Wound site irrigated prepped, adhesions broken up. The stability of the knee was assessed and noted to be satisfactory. Dressings were applied and the patient was placed into range of motion brace. He tolerated the procedure well. Job ID: [id number] Dictated Date: 06/17/2016 13:11:33 Hand Wood Sander Date: 06/18/2016 13:02:12 / gaby
== END 2016-06-17 15:58 | disposition home or self-care (01) ==
LOC: SDC 11:26
PROVIDERS: ATTEND Orthopaedic Surgery Orthopaedic Surgery of the Spine
DX: S82.101D Unspecified fracture of upper end of right tibia, subsequent encounter for closed fracture with routine healing (principal)
CPT/HCPCS: 80306

== ENCOUNTER 2016-08-24 14:04 | Emergency (ER) | payer MEDICAID ==
[~2016-08-24] VITALS: Ht 188 cm; Wt 104.3 kg
[~2016-08-24 14:04] MED LIST changes: +HYDR-3812 PO; +TRAZ300T3 PO
[2016-08-24] MEDS ORDERED: LIDOCAINE 2% 20 ML (XYLOCAINE) VIAL ONE (14:32)
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
[2016-08-24 15:24] VITALS: BP 153/93
== END 2016-08-24 15:23 | disposition home or self-care (01) ==
LOC: EDUNIT# 14:04 → ER 14:06
DX: N61.1 Abscess of the breast and nipple (principal); F17.210 Nicotine dependence, cigarettes, uncomplicated
CPT/HCPCS: 10060

== ENCOUNTER → 2017-09-24 | Outpatient (CLI) | payer MEDICAID ==
[~2017-09-24] MED LIST changes: +ACHD5005 PO; -HYDR-3812 PO; +NAPR-1071 PO; -NAPR500T PO
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
--- NOTE | 2017-09-24 18:53 | Diagnostic Imaging Report ---
INDICATION: Fever, chills, and congestion. TECHNIQUE: PA view of the chest is obtained with AP and oblique views of left ribs. COMPARISON: Comparison is made to study of 05/20/2013. FINDINGS: Overall heart size and pulmonary vascularity are within normal limits. There is mild left basilar atelectasis. No consolidation or pneumothorax is identified. There is no evidence of displaced rib fracture. No pneumothorax is identified. IMPRESSION: Mild left basilar atelectasis which could be due to splinting. Otherwise, no acute abnormality or displaced left rib fracture is identified. Dictated by: Dictated on workstation # [id number]
== END ==
LOC: RAD 18:20
PROVIDERS: ATTEND Nurse Practitioner Family
DX: S49.92XA Unspecified injury of left shoulder and upper arm, initial encounter (principal); J98.11 Atelectasis; V19.9XXA Pedal cyclist (driver) (passenger) injured in unspecified traffic accident, initial encounter
CPT/HCPCS: 71101; 73030

== ENCOUNTER 2019-06-22 12:47 | Emergency (ER) | payer MEDICAID ==
[~2019-06-22] VITALS: Ht 187 cm; Wt 95.2 kg
[~2019-06-22 12:47] MED LIST changes: +HYDR-4226 PO; -HYDR-757 PO; -MINO100C2 PO; +MINO100C5 PO
[2019-06-22] MEDS ORDERED: LACTATED RINGERS 1,000 ML IV ONE (14:38)
[2019-06-22] MEDS ORDERED: KETOROLAC 30 MG/ML VIAL IVP STA (14:38)
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
[2019-06-22 14:54] LABS: BILIRUBIN,URINE NEGATIVE (NEGATIVE); CLARITY,URINE CLEAR; COLOR,URINE YELLOW; GLUCOSE, URINE (UA) NEGATIVE (NEGATIVE); KETONES,URINE NEGATIVE (NEGATIVE); LEUKOCYTE ESTERASE ,URINE NEGATIVE (NEGATIVE); NITRITE,URINE NEGATIVE (NEGATIVE); PROTEIN,URINE NEGATIVE (NEGATIVE)
[2019-06-22 15:02] LABS: BACTERIA,URINE NEGATIVE /HPF; SQUAMOUS EPITHELIAL CELL,UR RARE /HPF
[2019-06-22 15:11] LABS: AMPHETAMINE SCREEN, URINE POSITIVE (NEGATIVE); BARBITURATE SCREEN URINE NEGATIVE (NEGATIVE); BENZODIAZEPINES SCREEN URINE NEGATIVE (NEGATIVE); CANNABINOID SCREEN, URINE POSITIVE (NEGATIVE); COCAINE SCREEN URINE NEGATIVE (NEGATIVE); METHADONE STAT NEGATIVE (NEGATIVE); METHAMPHETAMINE SCREEN URINE S POSITIVE (NEGATIVE); OPIATE SCREEN URINE NEGATIVE (NEGATIVE); OXYCODONE STAT NEGATIVE (NEGATIVE); PROPOXYPHENE STAT NEGATIVE (NEGATIVE); TRICYCLIC ANTIDEPRESSANTS SCRE NEGATIVE (NEGATIVE)
[2019-06-22 15:12] LABS: BASOPHILS # (AUTO) 0.1 10^3/uL (0.0-0.1); BASOPHILS % (AUTO) 1 % (0-10); EOSINOPHILS # (AUTO) 0.1 10^3/uL (0.0-0.3); EOSINOPHILS % (AUTO) 1 % (0-10); HEMATOCRIT 47 % (40-54); HEMOGLOBIN 15.9 G/DL (13.3-17.7); LYMPHOCYTES # (AUTO) 2.5 X 10^3 (1.0-4.0); LYMPHOCYTES % (AUTO) 28 % (12-44); MEAN CORPUSCULAR HEMOGLOBIN 30 PG (25-34); MEAN CORPUSCULAR HGB CONC 34 G/DL (32-36); MEAN CORPUSCULAR VOLUME 89 FL (80-99); MEAN PLATELET VOLUME 9.1 FL (7.4-10.4); MONOCYTES # (AUTO) 1.3 X 10^3 (0.0-1.0); MONOCYTES % (AUTO) 15 % (0-12); NEUTROPHILS # (AUTO) 4.9 X 10^3 (1.8-7.8); NEUTROPHILS % (AUTO) 55 % (42-75); PLATELET COUNT 360 10^3/uL (130-400); RED CELL DISTRIBUTION WIDTH 13.8 % (10.0-14.5); WHITE BLOOD COUNT 8.8 10^3/uL (4.3-11.0)
[2019-06-22 15:14] LABS: SMEAR SCAN COMMENT YES
[2019-06-22 15:24] LABS: ALANINE AMINOTRANSFERASE 15 U/L (0-55); ALBUMIN 4.2 GM/DL (3.2-4.5); ALKALINE PHOSPHATASE 120 U/L (40-136); BILIRUBIN,TOTAL 0.6 MG/DL (0.1-1.0); BUN/CREATININE RATIO 8; CALCIUM 9.2 MG/DL (8.5-10.1); CARBON DIOXIDE 22 MMOL/L (21-32); CHLORIDE 107 MMOL/L (98-107); CREATININE SERUM 1.02 MG/DL (0.60-1.30); GFR ESTIMATED > 60; GLUCOSE 96 MG/DL (70-105); POTASSIUM 4.2 MMOL/L (3.6-5.0); SODIUM 139 MMOL/L (135-145); TOTAL PROTEIN 7.7 GM/DL (6.4-8.2)
[2019-06-22 16:04] VITALS: BP 135/96
--- OUTSIDE RECORDS SUMMARY | 2019-06-24 15:56 | XMS REPORT | Continuity of Care Document ---
Author Organization Unknown Address Unknown Phone Unavailable Allergies There is no data. Medications There is no data. Problems Date Dx Coded Attending Type Code Diagnosis Diagnosed By 01/09/2011 ROSA ISELA TAPIA DO 070.70 HEPATITIS, C VIRUS 01/09/2011 ROSA ISELA TAPIA DO K 305.1 NICOTINE DEPENDENCE 01/09/2011 ROSA ISELA TAPIA DO K 305.90 SUBSTANCE USE DISORDERS 01/09/2011 ROSA ISELA TAPIA DO 780.99 loss of pleasure from usual activities (anhedonia) 01/09/2011 ROSA ISELA TAPIA DO V04.81 Vaccines Prophylactic Need Against Influenza 01/09/2011 VLAD KENNY APRN R 070.70 HEPATITIS, C VIRUS 01/09/2011 VLAD KENNY APRN R 305.1 NICOTINE DEPENDENCE 01/09/2011 JENNY KENNY APRNINA R 305.90 SUBSTANCE USE DISORDERS 01/09/2011 JENNY KENNY APRNINA R 780.99 loss of pleasure from usual activities (anhedonia) 01/09/2011 JENNY KENNY APRNINA R V04.81 Vaccines Prophylactic Need Against Influenza 01/09/2011 CIRA YOO 070.70 HEPATITIS, C VIRUS 01/09/2011 LEV HERNANDEZ, CIRA W 305.1 NICOTINE DEPENDENCE 01/09/2011 LEV HERNANDEZ, CIRA W 305.90 SUBSTANCE USE DISORDERS 01/09/2011 CIRA YOO W 780.99 loss of pleasure from usual activities (anhedonia) 01/09/2011 LEV HERNANDEZ, CIRA W V04.81 Vaccines Prophylactic Need Against Influenza 07/09/2011 ROSA ISELA TAPIA DO K 305.00 NONDEPENDENT ALCOHOL ABUSE UNSPECIFIED DRINKING BEHAVIOR 07/09/2011 EFRAÍN GRIMES VLAD R 305.00 NONDEPENDENT ALCOHOL ABUSE UNSPECIFIED DRINKING BEHAVI OR 07/09/2011 LEV HERNANDEZ, CIRA W 305.00 NONDEPENDENT ALCOHOL ABUSE UNSPECIFIED DRINKING BEHAVI OR 05/11/2014 VLAD KENNY APRN R V69.9 UNSPECIFIED PROBLEM RELATED TO LIFESTYLE 05/11/2014 CIRA YOO V69.9 UNSPECIFIED PROBLEM RELATED TO LIFESTYLE 05/30/2014 CIRA YOO 296.90 MOOD DISORDER NOS 05/30/2014 CIRA YOO 304.80 SA POLYSUB DEP Procedures Code Description [place] [address] PSYC H DIAGNOSTIC EVALUATION 05/30/2014 Results There is no data. Encounters ACCT No. Visit Date/Time Discharge Status Pt. Type Provider Facility Loc./Unit Complaint [id number] 05/30/2014 09:53:00 05/30/2014 23:59: 59 CLS Outpatient CIRA YOO [id number] 05/13/2014 14:14:00 05/13/2014 23:59: 59 CLS Outpatient VLAD KENNY APRN [id number] 01/15/2012 09:32:00 01/15/2012 23:59: 59 CLS Outpatient ROSA ISELA TAPIA DO
--- OUTSIDE RECORDS SUMMARY | 2019-06-24 15:56 | XMS REPORT ---
Author Author [employer] Organization [employer] Address [address] [address] Care Team Providers Care Deputy Coroner Investigator Name Role Phone NO, LOCAL PHYSICIAN Unavailable Unavailable NO, LOCAL PHYSICIAN Unavailable Unavailable Allergies The data below is from unstructured sources Allergen Type Severity Reaction Status Last Updated No Known Drug Allergies Active 01/22/10 Allergen Type Severity Reaction Last Updated No Known Drug Allergies 01/22/10 Allergen Type Severity Reaction Status Last Updated No Known Drug Allergies Active 01/22/10 Medications No Information Problems The data below is from unstructured sourcesNo Known Problems or Medical conditions. Procedures The data below is from unstructured sourcesNo known history of procedures.No known history of procedures.No known history of procedures. Immunizations No Information Results The data below is from unstructured sourcesNo known relevant diagnostic tests, laboratory data and/or discharge summary.No Known Relevant Diagnostic Tests, Laboratory Data and/or Discharge Summary.No Known Relevant Diagnostic Tests, Laboratory Data and/or Discharge Summary. Vital Signs The data below is from unstructured sources Vital Response Date/Time Temperature (Fahrenheit) 97.8 degree s F (97.6 - 99.5) Temperature (Calculated Celsius) 36. 36335 degrees C (36.4 - 37.5) Temperature Source Temporal Pulse Rate (adult) 90 bpm (60 - 90) Respiratory Rate 16 bpm (12 - 24) O2 Sat by Pulse Oximetry 96 % (88 - 100) Blood Pressure 166/93 mm Hg Pain Pain Intensity 10 Height (Feet) 6 feet Height (Inches) 2 inches Height (Calculated Centimeters) 187. 660551 cm Weight (Pounds) 170 pounds Weight (Calculated Kilograms) 77.110 704 kilograms Calculated BMI 21.82 Vital Response Date/Time Temperature (Fahrenheit) 98 degrees F (97.6 - 99.5) Temperature (Calculated Celsius) 36. 6696 degrees C (36.4 - 37.5) Pulse Rate (adult) 52 bpm (60 - 90) Respiratory Rate 18 bpm (12 - 24) O2 Sat by Pulse Oximetry 96 % (88 - 100) Blood Pressure 147/97 mm Hg Pain Pain Intensity 0 Height (Feet) 6 feet Height (Inches) 2 inches Height (Calculated Centimeters) 187. 735052 cm Weight (Pounds) 190 pounds Weight (Ounces) 0.0 oz Weight (Calculated Grams) 09450.627 gm Weight (Calculated Kilograms) 86.182 551 kilograms Calculated BMI 24.39 Vital Response Date/Time Temperature (Fahrenheit) 98 degrees F (97.6 - 99.5) Temperature (Calculated Celsius) 36. 6696 degrees C (36.4 - 37.5) Pulse Rate (adult) 52 bpm (60 - 90) Respiratory Rate 18 bpm (12 - 24) O2 Sat by Pulse Oximetry 96 % (88 - 100) Blood Pressure 147/97 mm Hg Pain Pain Intensity 0 Height (Feet) 6 feet Height (Inches) 2 inches Height (Calculated Centimeters) 187. 119213 cm Weight (Pounds) 190 pounds Weight (Ounces) 0.0 oz Weight (Calculated Grams) 89576.627 gm Weight (Calculated Kilograms) 86.182 551 kilograms Calculated BMI 24.39 Interventions No Information Plan of Treatment The data below is from unstructured sourcesNo plan of care.No plan of care.No plan of care. Goals No Information Social History The data below is from unstructured sources History Response Recorde d Date/Time Hx Family Cancer Y CERVICAL 12/15/10 3:30pm Hx Family Cardiac Disorders Y 12/15/10 3:30pm Hx Family Stroke Y FATHER 1977 12/15/10 3:30pm Hx Family Hypertension Y MOTHER AND FATHER 12/15/10 3:30pm Hx Family Myocardial Infarction Y MO THER AND FATHER 60 12/15/10 3:30pm History Response Recorde d Date/Time Alcohol Use Rarely Uses 12/26/12 5:04pm Recreational Drug Use Y marjuana and meth 12/26/12 5:04pm Recent Foreign Travel N 12/26/12 5:04pm Recent Infectious Disease Exposure N 12/26/12 5:04pm Hospitalization with Isolation Denies 12/26/12 5:04pm Sexually Transmitted Disease N 12/26/12 5:04pm History Response Recorde d Date/Time Alcohol Use Rarely Uses 12/26/12 5:04pm Recreational Drug Use Y marjuana and meth 12/26/12 5:04pm Recent Foreign Travel N 12/26/12 5:04pm Recent Infectious Disease Exposure N 12/26/12 5:04pm Hospitalization with Isolation Denies 12/26/12 5:04pm Sexually Transmitted Disease N 12/26/12 5:04pm Functional Status The data below is from unstructured sourcesNo functional status results.No functional status results.No functional status results. Mental Status No Information Encounters No Information Medical Equipment No Information Payers The data below is from unstructured sources Payer Name Policy Number Subscriber Name Relationship Self Pay John Kaplan Self / Same As Patient Advance Directives Directive Response Recor ded Date/Time Advance Directives No 10:42pm Health Care Power of Lathmaker No 09/04/14 10:42pm Organ Donor No 09/04/14 10:42pm Resuscitation Status Full Code 09/04/14 10:42pm Directive Response Recor ded Date Advance Directives N 5:04pm Health Care Power of Lathmaker N 12/26/12 5:04pm Organ Donor N 12/26/12 5 :04pm Directive Response Recor ded Date/Time Advance Directives No 10:39am Health Care Power of Lathmaker No 01/28/14 10:39am Organ Donor No 01/28/14 10:39am Resuscitation Status Full Code 01/28/14 10:39am Discharge Instructions No hospital discharge instructions.No hospital discharge instructions. Additional Source Comments This clinical document has been generated using [employer] software that has been certified by the Office of the National Coordinator for Health Information Technology (ONC 15.99.04.3023.Diam.[id number]) and the National Committee for Loin Trimmer (NCQA, as an eMeasure certified technology). FOR RECORDS PERTAINING TO PATIENTS WHO ARE OR HAVE BEEN ENROLLED IN A CHEMICAL D EPENDENCY/SUBSTANCE ABUSE PROGRAM, SOME INFORMATION MAY BE OMITTED. This clinica l summary was aggregated from multiple sources. Caution should be exercised in using it in the provision of clinical care. This summary normalizes information from multiple sources, and as a consequence, information in this document may ma terially change the coding, format and clinical context of patient data. In mendel tion, data may be omitted in some cases. CLINICAL DECISIONS SHOULD BE BASED ON T HE PRIMARY CLINICAL RECORDS. [facility]. provides no warranty or guara ntee of the accuracy or completeness of information in this document.The followi information is based on time limited clinical information
== END 2019-06-22 16:04 | disposition home or self-care (01) ==
LOC: EDUNIT# 12:47 → ER 12:48
DX: R30.0 Dysuria (principal); F17.210 Nicotine dependence, cigarettes, uncomplicated
CPT/HCPCS: 36415; 80053; 80306; 81000; 85025; 86141

== ENCOUNTER 2019-09-22 18:49 | Emergency (ER) | payer MEDICAID ==
[~2019-09-22] VITALS: Ht 182 cm; Wt 95.2 kg
[2019-09-22 19:00] VITALS: BP 167/110
[2019-09-22] MEDS ORDERED: DOXY100T2 PO (19:11)
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
[2019-09-22] MEDS ORDERED: DOXYCYCLINE 100 MG (VIBRAMYCIN) TABLET PO SCH (19:15)
--- OUTSIDE RECORDS SUMMARY | 2019-09-22 20:48 | XMS REPORT | Continuity of Care Document ---
[...] V69.9 UNSPECIFIED PROBLEM RELATED TO LIFESTYLE 05/11/2014 ICRA YOO V69.9 UNSPECIFIED PROBLEM RELATED TO LIFESTYLE 05/30/2014 CIRA YOO 296.90 MOOD DISORDER NOS 05/30/2014 CIRA YOO 304.80 SA POLYSUB DEP Procedures Code [place] [address] PSYC H DIAGNOSTIC EVALUATION 05/30/2014 Results There is no data. Encounters ACCT No. Visit Date/Time Discharge Status Pt. Type Provider Facility Loc./Unit Complaint [id number] 05/30/2014 09:53:00 05/30/2014 23:59: 59 CLS Outpatient CIRA YOO [id number] 05/13/2014 14:14:00 05/13/2014 23:59: 59 CLS Outpatient VLAD KENNY APRN [id number] 01/15/2012 09:32:00 01/15/2012 23:59: 59 CLS Outpatient ROSA ISELA TAPIA DO
--- OUTSIDE RECORDS SUMMARY | 2019-09-22 20:48 | XMS REPORT ---
Author Author [facility] [facility] [employer] [facility] Address [address] [address] Care Team Providers Care Sanitarian Aide Name Role Phone NO, LOCAL PHYSICIAN Unavailable [...] (97.6 - 99.5) Temperature (Calculated Celsius) 36. 97054 degrees C (36.4 - 37.5) Temperature Source Temporal Pulse Rate (adult) 90 bpm (60 - 90) Respiratory Rate 16 bpm (12 - 24) O2 Sat by Pulse Oximetry 96 % (88 - 100) Blood Pressure 166/93 mm Hg Pain Pain Intensity 10 Height (Feet) 6 feet Height (Inches) 2 inches Height (Calculated Centimeters) 187. 515946 cm Weight (Pounds) 170 pounds Weight (Calculated [...] (Inches) 2 inches Height (Calculated Centimeters) 187. 411245 cm Weight (Pounds) 190 pounds Weight (Ounces) 0.0 oz Weight (Calculated Grams) 56732.627 gm Weight (Calculated Kilograms) 86.182 551 kilograms [...] (Inches) 2 inches Height (Calculated Centimeters) 187. 624629 cm Weight (Pounds) 190 pounds Weight (Ounces) 0.0 oz Weight (Calculated Grams) 23556.627 gm Weight (Calculated Kilograms) 86.182 551 kilograms [...] Directives No 10:42pm Health Care Power of Vamp Throater No 09/04/14 10:42pm Organ Donor No 09/04/14 10:42pm Resuscitation Status Full Code 09/04/14 10:42pm Directive Response Recor ded Date Advance Directives N 5:04pm Health Care Power of Vamp Throater N 12/26/12 5:04pm Organ Donor N 12/26/12 5 :04pm Directive Response Recor ded Date/Time Advance Directives No 10:39am Health Care Power of Vamp Throater No 01/28/14 10:39am Organ Donor No 01/28/14 10:39am Resuscitation Status Full Code 01/28/14 10:39am Discharge Instructions No hospital discharge instructions.No hospital discharge instructions. Additional Source Comments This clinical document has been generated using [employer] software that has been certified by the Office of the National Coordinator for Health Information Technology (ONC 15.99.04.3023.Diam.[id number]) and the National Committee for Ice Rink Attendant (NCQA, as an eMeasure certified technology). FOR [...] BASED ON T HE PRIMARY CLINICAL RECORDS. [employer]. provides no warranty or guara ntee of the accuracy or completeness of information in this document.The followi ng information is based on time limited clinical information
== END 2019-09-22 19:15 | disposition home or self-care (01) ==
LOC: EDUNIT# 18:49 → ER 18:51
DX: S40.262A Insect bite (nonvenomous) of left shoulder, initial encounter (principal); Z82.49 Family history of ischemic heart disease and other diseases of the circulatory system; W57.XXXA Bitten or stung by nonvenomous insect and other nonvenomous arthropods, initial encounter
CPT/HCPCS: 99283

== ENCOUNTER 2020-04-14 20:58 | Emergency (ER) | payer MEDICAID ==
[~2020-04-14] VITALS: Ht 187.9 cm; Wt 86.0 kg
[~2020-04-14 20:58] MED LIST changes: +DOXY100T2 PO
[2020-04-14] MEDS ORDERED: morphine INJ 10 MG/ML 1ML (SYR OR VIAL) ONE (21:08)
[2020-04-14] MEDS ORDERED: morphine INJ 10 MG/ML 1ML (SYR OR VIAL) IVP ONE (21:15)
[2020-04-14 21:17] LABS: BASOPHILS # (AUTO) 0.1 10^3/uL (0.0-0.1); BASOPHILS % (AUTO) 1 % (0-10); EOSINOPHILS # (AUTO) 0.4 10^3/uL (0.0-0.3); EOSINOPHILS % (AUTO) 4 % (0-10); HEMATOCRIT 44 % (40-54); HEMOGLOBIN 14.9 g/dL (13.3-17.7); LYMPHOCYTES % (AUTO) 28 % (12-44); MEAN CORPUSCULAR HEMOGLOBIN 30 pg (25-34); MEAN CORPUSCULAR HGB CONC 34 g/dL (32-36); MEAN CORPUSCULAR VOLUME 87 fL (80-99); MEAN PLATELET VOLUME 8.9 fL (9.0-12.2); MONOCYTES % (AUTO) 10 % (0-12); NEUTROPHILS # (AUTO) 6.3 10^3/uL (1.8-7.8); NEUTROPHILS % (AUTO) 58 % (42-75); PLATELET COUNT 382 10^3/uL (130-400); WHITE BLOOD COUNT 10.9 10^3/uL (4.3-11.0)
[2020-04-14 21:27] LABS: CHLORIDE 104 MMOL/L (98-107); POTASSIUM 4.1 MMOL/L (3.6-5.0); SODIUM 137 MMOL/L (135-145)
[2020-04-14 21:29] LABS: CALCIUM 9.3 MG/DL (8.5-10.1)
[2020-04-14 21:30] LABS: GLUCOSE 104 MG/DL (70-105)
[2020-04-14 21:31] LABS: CARBON DIOXIDE 22 MMOL/L (21-32)
[2020-04-14 21:33] LABS: ALKALINE PHOSPHATASE 112 U/L (40-136); CREATININE SERUM 1.14 MG/DL (0.60-1.30); GFR ESTIMATED > 60
[2020-04-14] MEDS ORDERED: RT-ALBUTEROL INHALER HFA (VENTOLIN HFA) 18 GM IH STA (21:33)
[2020-04-14 21:34] LABS: BUN/CREATININE RATIO 17
[2020-04-14 21:36] LABS: ALANINE AMINOTRANSFERASE 27 U/L (0-55)
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
[2020-04-14] MEDS ORDERED: BACITRACIN OINTMENT 28 GM TUBE ONE (21:42)
--- NOTE | 2020-04-14 21:46 | NUR ---
NECK WHEELER CLEANED WITH CHLORHEXIDINE AND STERILE WATER MIXTURE AND GENTLE PAT DRY WITH GAUZE. BACITRACIN OINTMENT APPLIED AND COVERED WITH NON ADHERENT DRSG.
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
[2020-04-14 21:57] LABS: ALBUMIN 4.4 GM/DL (3.2-4.5); TOTAL PROTEIN 7.9 GM/DL (6.4-8.2)
[2020-04-14] MEDS ORDERED: TETANUS,DIPTH,PERTUSS P/F (BOOSTRIX) 0.5 ML VIAL IM ONE (22:45)
--- NOTE | 2020-04-14 22:50 | NUR ---
O2 SAT 93% AND ETCO2 36.
--- NOTE | 2020-04-14 22:50 | NUR ---
PT VERY DROWSY. WILL ANSWER QUESTIONS, BUT DELAYED. DR. GALARZA NOTIFIED. ABG ORDERED AT THIS TIME.
[2020-04-14 23:01] LABS: ABG BASE EXCESS 3.4 MMOL/L (-2.5-2.5); ABG OXYGEN SATURATION 93 % (94-100); ABG PCO2 47 MMHG (35-45); ABG PH 7.39 (7.37-7.43); ABG PO2 66 MMHG (79-93); ABG TCO2 29.5 MMOL/L (21.0-31.0); ALLENS TEST POSITIVE; INSPIRED O2 RA; PATIENT TEMP 36.6; VENTILATOR NO
--- NOTE | 2020-04-14 23:59 | NUR ---
O2 SAT 93%, ETCO2 35, BP 149/98. PT RESTING IN BED WITH EYES CLOSED. NO DISTRESS NOTED.
[2020-04-15] MEDS ORDERED: HYDR-4226 PO (02:19)
[2020-04-15 02:27] VITALS: BP 164/111
== END 2020-04-15 02:28 | disposition home or self-care (01) ==
LOC: EDUNIT# 20:58 → ER 21:00
DX: T20.27XA Burn of second degree of neck, initial encounter (principal); T31.0 Burns involving less than 10% of body surface; F17.210 Nicotine dependence, cigarettes, uncomplicated; Z82.61 Family history of arthritis; Z82.49 Family history of ischemic heart disease and other diseases of the circulatory system; Z23 Encounter for immunization; X04.XXXA Exposure to ignition of highly flammable material, initial encounter
CPT/HCPCS: 36415; 71045; 80053; 82805; 85025; 90715

== ENCOUNTER 2021-03-09 14:44 | Emergency (ER) | payer MEDICAID ==
[~2021-03-09] VITALS: Ht 74 cm; Wt 90.7 kg
[~2021-03-09 14:44] MED LIST changes: -SULF1TAB35 PO
[2021-03-09 15:00] VITALS: BP 186/124
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
[2021-03-09] MEDS ORDERED: KETOROLAC 30 MG/ML VIAL IVP ONE (15:45)
[2021-03-09] MEDS ORDERED: LACTATED RINGERS 1,000 ML IV SCH ×2 (15:45→16:15)
[2021-03-09] MEDS ORDERED: LORazepam INJ 2 MG/ML (ATIVAN) VIAL IVP ONE (15:45)
[2021-03-09 15:48] LABS: EOSINOPHILS % (AUTO) 4 % (0-10); HEMOGLOBIN 13.2 g/dL (13.3-17.7); MEAN PLATELET VOLUME 9.1 fL (9.0-12.2)
[2021-03-09 15:50] LABS: BASOPHILS % (AUTO) 0 % (0-10); EOSINOPHILS # (AUTO) 0.5 10^3/uL (0.0-0.3); HEMATOCRIT 39 % (40-54); LYMPHOCYTES # (AUTO) 2.4 10^3/uL (1.0-4.0); LYMPHOCYTES % (AUTO) 19 % (12-44); MEAN CORPUSCULAR HEMOGLOBIN 30 pg (25-34); MEAN CORPUSCULAR HGB CONC 34 g/dL (32-36); MEAN CORPUSCULAR VOLUME 87 fL (80-99); MONOCYTES % (AUTO) 8 % (0-12); NEUTROPHILS % (AUTO) 69 % (42-75); PLATELET COUNT 329 10^3/uL (130-400); WHITE BLOOD COUNT 13.1 10^3/uL (4.3-11.0)
[2021-03-09 16:00] LABS: ALBUMIN 4.1 GM/DL (3.2-4.5); POTASSIUM 5.2 MMOL/L (3.6-5.0)
[2021-03-09 16:01] LABS: CALCIUM 9.6 MG/DL (8.5-10.1)
[2021-03-09 16:01] LABS: BILIRUBIN,URINE NEGATIVE (NEGATIVE); CLARITY,URINE CLEAR; COLOR,URINE YELLOW; GLUCOSE, URINE (UA) NEGATIVE (NEGATIVE); KETONES,URINE NEGATIVE (NEGATIVE); LEUKOCYTE ESTERASE ,URINE NEGATIVE (NEGATIVE); NITRITE,URINE NEGATIVE (NEGATIVE); PROTEIN,URINE NEGATIVE (NEGATIVE)
[2021-03-09 16:03] LABS: TOTAL PROTEIN 7.3 GM/DL (6.4-8.2)
[2021-03-09 16:04] LABS: BILIRUBIN,TOTAL 0.5 MG/DL (0.1-1.0)
[2021-03-09 16:06] LABS: CREATININE SERUM 2.28 MG/DL (0.60-1.30)
[2021-03-09 16:09] LABS: BACTERIA,URINE NEGATIVE /HPF
[2021-03-09 16:16] LABS: AMPHETAMINE SCREEN, URINE POSITIVE (NEGATIVE); BARBITURATE SCREEN URINE NEGATIVE (NEGATIVE); BENZODIAZEPINES SCREEN URINE NEGATIVE (NEGATIVE); CANNABINOID SCREEN, URINE NEGATIVE (NEGATIVE); COCAINE SCREEN URINE NEGATIVE (NEGATIVE); METHADONE STAT NEGATIVE (NEGATIVE); METHAMPHETAMINE SCREEN URINE S NEGATIVE (NEGATIVE); OPIATE SCREEN URINE NEGATIVE (NEGATIVE); OXYCODONE STAT NEGATIVE (NEGATIVE); PROPOXYPHENE STAT NEGATIVE (NEGATIVE); TRICYCLIC ANTIDEPRESSANTS SCRE NEGATIVE (NEGATIVE)
[2021-03-09] MEDS ORDERED: LIDOCAINE UROJET 2% GEL 10 ML PKG TOP ONE (16:30)
[2021-03-09] MEDS ORDERED: TMSL.4C PO (16:36)
--- NOTE | 2021-03-09 16:51 | Diagnostic Imaging Report ---
CLINICAL INDICATION: Patient with complaints of constipation, onset a month ago. Patient reports taking "MOM" without success and now has stomach hurting and cramping. EXAM: CT scan of the abdomen and pelvis performed without IV or enteric contrast. Sagittal and coronal reformatted images wee created. Auto Exposure Controls were utilized during the CT exam to meet ALARA standards for radiation dose reduction. COMPARISON: Right upper quadrant ultrasound dated 07/16/2011. FINDINGS: There is mild atelectasis involving both lung bases. Enthesopathy involving the ischium and greater trochanter regions. There are spurs of the sacroiliac joints region. There is a radiodense foreign object seen along the right sacrum and coccyx region. There are degenerative spurs involving the visualized lower thoracic spine. Gallbladder is surgically absent. There are two closely adjacent or a single septated peripherally calcified cystic structure which is either inferiorly adjacent to or exophytically extending from the inferior aspect of the right lobe of liver. This area measures 2.7 cm x 1.5 cm x 1.7 cm (AP x Trans x CC). This was not seen on the prior right upper quadrant ultrasound. The liver, spleen and pancreas are unremarkable. There is nonspecific thickening of left adrenal gland. Right adrenal gland is unremarkable. 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 There is moderate to severe bilateral hydroureteronephrosis. The bladder is fluid distended with bladder wall thickening. There is no measurable mass involving the bladder. The prostate gland is not enlarged, but there is exophytic protrusion into the base of the bladder seen. Prostate gland measures roughly 4.5 cm in transverse dimension. There are anastomotic sutures overlying the left lower abdominal region and the colonic sigmoid junction region. The appendix is unremarkable. There is a small to moderate amount of stool within the transverse colon and ascending colon. There is no intestinal obstruction. There is no lymphadenopathy. There is no intra-abdominal free air or free fluid. Extra-abdominal and extra-pelvic soft tissue structures are unremarkable. 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 There is moderate to severe bilateral hydroureteronephrosis. There is a markedly distended bladder and there is bladder wall thickening which may be related to bladder contraction, but cystitis should be excluded. The prostate gland is not significantly enlarged, but there is exophytic protrusion into the base of the bladder. These findings may be related to bladder outlet obstruction. Urological consultation may help better evaluate. There is no stone or mass seen. 2: There is a small to moderate amount of stool within the transverse colon and right colon. 3: Gallbladder is surgically absent. 4: There are two closely adjacent or a single septated peripherally calcified cystic structure which is either inferiorly adjacent to or exophytically extending from the inferior aspect of the right lobe of liver. This may represent a complicated cyst or cysts. Comparison to prior outside CT scans, if available, would help better evaluate for chronicity. Otherwise, follow-up CT scan of the abdomen in six months is suggested to evaluate for interval change. Dictated by: Dictated on workstation # [id number]
[2021-03-09] MEDS ORDERED: cloNIDine 0.1 MG (CATAPRES) TAB PO ONE (17:15)
== END 2021-03-09 17:41 | disposition home or self-care (01) ==
LOC: EDUNIT# 14:44 → ER 14:46
DX: N13.30 Unspecified hydronephrosis (principal); I10 Essential (primary) hypertension; F17.210 Nicotine dependence, cigarettes, uncomplicated
CPT/HCPCS: 36415; 51702; 74022; 74176; 80053; 80306; 81000; 82550; 83690; 85025

== ENCOUNTER 2021-03-09 18:48 | Emergency (ER) | payer MEDICAID ==
[~2021-03-09 18:48] MED LIST changes: +TMSL.4C PO
== END 2021-03-09 19:55 | disposition left against medical advice (07) ==
LOC: EDUNIT# 18:48 → ER 18:50
DX: T83.83XA Hemorrhage due to genitourinary prosthetic devices, implants and grafts, initial encounter (principal)

== ENCOUNTER 2021-03-09 20:18 | Emergency (ER) | payer MEDICAID ==
[~2021-03-09] VITALS: Ht 176 cm; Wt 90.0 kg
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
[2021-03-09 20:54] VITALS: BP 176/110
== END 2021-03-09 20:55 | disposition home or self-care (01) ==
LOC: EDUNIT# 20:18 → ER 20:21
DX: R31.9 Hematuria, unspecified (principal); I10 Essential (primary) hypertension
CPT/HCPCS: 99282

== ENCOUNTER 2021-06-26 13:17 | Emergency (ER) | payer MEDICAID ==
[~2021-06-26] VITALS: Ht 187.9 cm; Wt 92.9 kg
[2021-06-26] MEDS ORDERED: ONDANSETRON 4 MG (ZOFRAN) ORAL DISSOLVE TAB PO STA (14:13)
[2021-06-26] MEDS ORDERED: cloNIDine 0.1 MG (CATAPRES) TAB PO ONE (14:15)
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
[2021-06-26 14:38] LABS: BASOPHILS % (AUTO) 0 % (0-10); EOSINOPHILS # (AUTO) 0.3 10^3/uL (0.0-0.3); EOSINOPHILS % (AUTO) 2 % (0-10); HEMATOCRIT 31 % (40-54); HEMOGLOBIN 10.9 g/dL (13.3-17.7); LYMPHOCYTES # (AUTO) 1.5 10^3/uL (1.0-4.0); LYMPHOCYTES % (AUTO) 15 % (12-44); MEAN CORPUSCULAR HEMOGLOBIN 30 pg (25-34); MEAN CORPUSCULAR HGB CONC 35 g/dL (32-36); MEAN CORPUSCULAR VOLUME 84 fL (80-99); MEAN PLATELET VOLUME 8.7 fL (9.0-12.2); MONOCYTES # (AUTO) 0.6 10^3/uL (0.0-1.0); MONOCYTES % (AUTO) 6 % (0-12); NEUTROPHILS # (AUTO) 8.2 10^3/uL (1.8-7.8); NEUTROPHILS % (AUTO) 77 % (42-75); PLATELET COUNT 237 10^3/uL (130-400); WHITE BLOOD COUNT 10.6 10^3/uL (4.3-11.0)
[2021-06-26 14:47] LABS: ALBUMIN 4.4 GM/DL (3.2-4.5)
[2021-06-26 14:48] LABS: POTASSIUM 4.4 MMOL/L (3.6-5.0)
[2021-06-26 14:49] LABS: CALCIUM 10.1 MG/DL (8.5-10.1)
[2021-06-26 14:50] LABS: TOTAL PROTEIN 8.2 GM/DL (6.4-8.2)
[2021-06-26 14:52] LABS: BILIRUBIN,TOTAL 0.8 MG/DL (0.1-1.0)
[2021-06-26 14:54] LABS: CREATININE SERUM 6.15 MG/DL (0.60-1.30)
--- NOTE | 2021-06-26 16:37 | Diagnostic Imaging Report ---
PROCEDURE: CT abdomen and pelvis without contrast. TECHNIQUE: Multiple contiguous axial images were obtained through the abdomen and pelvis without the use of intravenous contrast. Auto Exposure Controls were utilized during the CT exam to meet ALARA standards for radiation dose reduction. INDICATION: Abdominal pain, nausea, and vomiting. COMPARISON: Exam is compared with study 03/09/2021. FINDINGS: Congenital horseshoe kidney is present with at least moderate severity of hydroureteronephrosis of both moieties. No radiopaque stone is found. The urinary bladder remains distended with its fundus extending to the level of the umbilicus. Despite its degree of distention, there is thickening of the bladder's wall, cystitis could not be excluded. No radiopaque urinary tract calculi. No urinoma. No perinephric fluid collection. Chronic peripherally calcified cystic foci along the undersurface of the caudal aspect of the right hepatic lobe is stable and felt incidental. The gallbladder is surgically absent. No biliary dilatation. Spleen and pancreas are unremarkable. There is some low-density fatty hypertrophy of the bilateral adrenal glands, stable. The aortoiliac vessels are nonaneurysmal. There is no ileus or bowel obstruction. No perienteric or pericolonic edema. No findings of appendicitis or diverticulitis. IMPRESSION: 1. Chronic or recurrent moderate severity bilateral hydroureteronephrosis with thick-walled distended urinary bladder and a congenital horseshoe kidney without opaque stone. 2. Additional stable chronic findings as listed. Dictated by: Dictated on workstation # [id number]
[2021-06-26] MEDS ORDERED: NS IV 1000 ML 1,000 ML IV ONE (17:00)
[2021-06-26] MEDS ORDERED: hydrALAZINE (APESOLINE) 20 MG/ML VIAL IV ONE ×2 (17:00→17:30)
[2021-06-26] MEDS ORDERED: LIDOCAINE UROJET 2% GEL 10 ML PKG TOP ONE (17:15)
[2021-06-26] MEDS ORDERED: hydrALAZINE (APESOLINE) 20 MG/ML VIAL ONE (17:38)
[2021-06-26 18:19] LABS: BILIRUBIN,URINE NEGATIVE (NEGATIVE); CLARITY,URINE CLEAR; COLOR,URINE YELLOW; GLUCOSE, URINE (UA) NEGATIVE (NEGATIVE); KETONES,URINE NEGATIVE (NEGATIVE); LEUKOCYTE ESTERASE ,URINE NEGATIVE (NEGATIVE); NITRITE,URINE NEGATIVE (NEGATIVE); PH,URINE 5.5 (5-9); PROTEIN,URINE NEGATIVE (NEGATIVE)
[2021-06-26 18:31] LABS: AMORPHOUS SEDIMENT,UR RARE AMOR URATES /LPF; BACTERIA,URINE TRACE /HPF
[2021-06-26 18:39] VITALS: BP 185/97
== END 2021-06-26 18:39 | disposition short-term general hospital (02) ==
LOC: EDUNIT# 13:17 → ER 13:18
DX: R79.89 Other specified abnormal findings of blood chemistry (principal); F15.10 Other stimulant abuse, uncomplicated; I15.1 Hypertension secondary to other renal disorders; Z72.0 Tobacco use; Z20.822 Contact with and (suspected) exposure to COVID-19
CPT/HCPCS: 36415; 51702; 74176; 80053; 81000; 85025; 87636; 93005

== ENCOUNTER 2021-07-28 14:06 | Emergency (ER) | payer MEDICAID ==
[~2021-07-28] VITALS: Ht 188 cm; Wt 97.0 kg
[2021-07-28 14:53] LABS: BILIRUBIN,URINE NEGATIVE (NEGATIVE); CLARITY,URINE CLEAR; COLOR,URINE YELLOW; GLUCOSE, URINE (UA) NEGATIVE (NEGATIVE); KETONES,URINE NEGATIVE (NEGATIVE); LEUKOCYTE ESTERASE ,URINE 1+ (NEGATIVE); NITRITE,URINE NEGATIVE (NEGATIVE); PROTEIN,URINE 1+ (NEGATIVE)
[2021-07-28 15:02] LABS: BACTERIA,URINE TRACE /HPF
[2021-07-28 15:09] LABS: AMPHETAMINE SCREEN, URINE NEGATIVE (NEGATIVE); BARBITURATE SCREEN URINE NEGATIVE (NEGATIVE); BENZODIAZEPINES SCREEN URINE NEGATIVE (NEGATIVE); CANNABINOID SCREEN, URINE POSITIVE (NEGATIVE); COCAINE SCREEN URINE NEGATIVE (NEGATIVE); METHADONE STAT NEGATIVE (NEGATIVE); METHAMPHETAMINE SCREEN URINE S NEGATIVE (NEGATIVE); OPIATE SCREEN URINE NEGATIVE (NEGATIVE); OXYCODONE STAT NEGATIVE (NEGATIVE); PROPOXYPHENE STAT NEGATIVE (NEGATIVE); TRICYCLIC ANTIDEPRESSANTS SCRE NEGATIVE (NEGATIVE)
[2021-07-28] MEDS ORDERED: CIPROFLOXACIN 500 MG (CIPRO) TABLET PO STA (15:29)
[2021-07-28] MEDS ORDERED: LIDOCAINE 2% VISCOUS 15 ML UDC MM ONE (15:30)
[2021-07-28] MEDS ORDERED: CIPR500T5 PO (15:36)
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
[2021-07-28 15:52] VITALS: BP 130/89
== END 2021-07-28 15:51 | disposition home or self-care (01) ==
LOC: EDUNIT# 14:06 → ER 14:07
DX: R33.9 Retention of urine, unspecified (principal); N39.0 Urinary tract infection, site not specified; F17.210 Nicotine dependence, cigarettes, uncomplicated
CPT/HCPCS: 51702; 80306; 81000; 87077; 87088; 87186

== ENCOUNTER 2021-08-06 12:43 | Emergency (ER) | payer MEDICAID ==
[~2021-08-06] VITALS: Ht 187.9 cm; Wt 97.5 kg
[~2021-08-06 12:43] MED LIST changes: +CIPR500T5 PO
[2021-08-06 13:41] VITALS: BP 184/121
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
== END 2021-08-06 14:28 | disposition home or self-care (01) ==
LOC: EDUNIT# 12:43 → ER 12:45
DX: Z96.0 Presence of urogenital implants (principal); F17.210 Nicotine dependence, cigarettes, uncomplicated
CPT/HCPCS: 99281

== ENCOUNTER 2021-09-01 12:35 | Emergency (ER) | payer MEDICAID ==
[~2021-09-01] VITALS: Ht 188 cm; Wt 95.2 kg
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
[2021-09-01] MEDS ORDERED: amLODIPine 5 MG (NORVASC) TAB ONE (13:10)
[2021-09-01 13:16] LABS: BASOPHILS % (AUTO) 0 % (0-10); EOSINOPHILS # (AUTO) 0.5 10^3/uL (0.0-0.3); EOSINOPHILS % (AUTO) 5 % (0-10); HEMATOCRIT 35 % (40-54); LYMPHOCYTES # (AUTO) 2.2 10^3/uL (1.0-4.0); LYMPHOCYTES % (AUTO) 21 % (12-44); MEAN CORPUSCULAR HEMOGLOBIN 29 pg (25-34); MEAN CORPUSCULAR HGB CONC 34 g/dL (32-36); MEAN CORPUSCULAR VOLUME 85 fL (80-99); MEAN PLATELET VOLUME 8.8 fL (9.0-12.2); MONOCYTES # (AUTO) 0.6 10^3/uL (0.0-1.0); MONOCYTES % (AUTO) 5 % (0-12); NEUTROPHILS # (AUTO) 7.4 10^3/uL (1.8-7.8); NEUTROPHILS % (AUTO) 69 % (42-75); PLATELET COUNT 359 10^3/uL (130-400); WHITE BLOOD COUNT 10.8 10^3/uL (4.3-11.0)
[2021-09-01 13:26] LABS: ALBUMIN 3.8 GM/DL (3.2-4.5); POTASSIUM 4.3 MMOL/L (3.6-5.0)
[2021-09-01 13:27] LABS: BILIRUBIN,URINE NEGATIVE (NEGATIVE); CLARITY,URINE SL CLOUDY; COLOR,URINE YELLOW; GLUCOSE, URINE (UA) NEGATIVE (NEGATIVE); KETONES,URINE NEGATIVE (NEGATIVE); LEUKOCYTE ESTERASE ,URINE 3+ (NEGATIVE); NITRITE,URINE POSITIVE (NEGATIVE); PROTEIN,URINE TRACE (NEGATIVE)
[2021-09-01 13:28] LABS: CALCIUM 9.1 MG/DL (8.5-10.1)
[2021-09-01 13:29] LABS: TOTAL PROTEIN 7.8 GM/DL (6.4-8.2)
[2021-09-01 13:31] LABS: BILIRUBIN,TOTAL 0.5 MG/DL (0.1-1.0)
[2021-09-01 13:32] LABS: CREATININE SERUM 1.81 MG/DL (0.60-1.30)
[2021-09-01 13:33] LABS: RBC,URINE 0-2 /HPF
[2021-09-01 13:34] LABS: BACTERIA,URINE LARGE /HPF; WBC,URINE 25-50 /HPF
[2021-09-01] MEDS ORDERED: CEPH500T PO (14:05)
[2021-09-01] MEDS ORDERED: AMLO-251 PO (14:05)
[2021-09-01 14:20] VITALS: BP 188/120
[2021-09-02] MEDS ORDERED: amLODIPine 5 MG (NORVASC) TAB PO SCH (09:00)
== END 2021-09-01 14:20 | disposition home or self-care (01) ==
LOC: EDUNIT# 12:35 → ER 12:36
DX: N17.9 Acute kidney failure, unspecified (principal); I10 Essential (primary) hypertension; N39.0 Urinary tract infection, site not specified; Z79.899 Other long term (current) drug therapy; Z96.0 Presence of urogenital implants
CPT/HCPCS: 36415; 80053; 81000; 85025; 87077; 87088; 87186; 99282

== ENCOUNTER 2021-09-23 13:57 | Emergency (ER) | payer MEDICAID ==
[~2021-09-23] VITALS: Ht 180 cm; Wt 95.2 kg
[~2021-09-23 13:57] MED LIST changes: +AMLO-251 PO; +CEPH500T PO
[2021-09-23] MEDS ORDERED: LIDOCAINE UROJET 2% GEL 10 ML PKG ONE (14:31)
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
[2021-09-23] MEDS ORDERED: LIDOCAINE UROJET 2% GEL 10 ML PKG TOP ONE (14:45)
[2021-09-23] MEDS ORDERED: NS IV 500 ML 500 ML IV ONE (14:45)
[2021-09-23 14:48] LABS: HEMATOCRIT 34 % (40-54); HEMOGLOBIN 11.6 g/dL (13.3-17.7); MEAN CORPUSCULAR HEMOGLOBIN 30 pg (25-34); MEAN CORPUSCULAR HGB CONC 34 g/dL (32-36); MEAN CORPUSCULAR VOLUME 87 fL (80-99); MEAN PLATELET VOLUME 8.8 fL (9.0-12.2); PLATELET COUNT 346 10^3/uL (130-400); WHITE BLOOD COUNT 10.4 10^3/uL (4.3-11.0)
[2021-09-23 14:49] LABS: BASOPHILS # (AUTO) 0.1 10^3/uL (0.0-0.1); BASOPHILS % (AUTO) 1 % (0-10); EOSINOPHILS # (AUTO) 0.4 10^3/uL (0.0-0.3); EOSINOPHILS % (AUTO) 4 % (0-10); LYMPHOCYTES # (AUTO) 2.1 X 10^3 (1.0-4.0); LYMPHOCYTES % (AUTO) 20 % (12-44); MONOCYTES # (AUTO) 0.7 X 10^3 (0.0-1.0); MONOCYTES % (AUTO) 7 % (0-12); NEUTROPHILS # (AUTO) 7.1 X 10^3 (1.8-7.8); NEUTROPHILS % (AUTO) 68 % (42-75)
[2021-09-23 15:10] LABS: POTASSIUM 4.4 MMOL/L (3.6-5.0)
[2021-09-23 15:11] LABS: ALBUMIN 3.9 GM/DL (3.2-4.5); BILIRUBIN,TOTAL 0.5 MG/DL (0.1-1.0); CALCIUM 8.7 MG/DL (8.5-10.1); CREATININE SERUM 2.05 MG/DL (0.60-1.30)
[2021-09-23 15:42] LABS: CLARITY,URINE CLEAR; COLOR,URINE YELLOW
[2021-09-23 15:43] LABS: GLUCOSE, URINE (UA) NEGATIVE (NEGATIVE); PROTEIN,URINE NEGATIVE (NEGATIVE)
[2021-09-23 15:44] LABS: BACTERIA,URINE NEGATIVE /HPF; BILIRUBIN,URINE NEGATIVE (NEGATIVE); KETONES,URINE NEGATIVE (NEGATIVE); LEUKOCYTE ESTERASE ,URINE NEGATIVE (NEGATIVE); NITRITE,URINE NEGATIVE (NEGATIVE); WBC,URINE RARE /HPF
[2021-09-23 16:05] VITALS: BP 177/124
[2021-09-24] MEDS ORDERED: OXYB5TAB13 PO (20:50)
== END 2021-09-23 16:05 | disposition home or self-care (01) ==
LOC: EDUNIT# 13:57 → ER 14:00
DX: R33.9 Retention of urine, unspecified (principal); F17.210 Nicotine dependence, cigarettes, uncomplicated
CPT/HCPCS: 36415; 51702; 80053; 81000; 85025; 86141

== ENCOUNTER 2021-09-24 20:22 | Emergency (ER) | payer MEDICAID ==
[2021-09-24] MEDS ORDERED: ACETAMINOPHEN 500 MG TAB (TYLENOL) PO ONE (20:45)
[2021-09-24] MEDS ORDERED: OXYBUTYNIN (DITROPAN) 5 MG TAB PO ONE (20:45)
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
[2021-09-24] MEDS ORDERED: OXYB5TAB13 PO (20:50)
[2021-09-24 21:03] VITALS: BP 189/100
== END 2021-09-24 21:03 | disposition home or self-care (01) ==
LOC: EDUNIT# 20:22 → ER 20:22
DX: T83.511A Infection and inflammatory reaction due to indwelling urethral catheter, initial encounter (principal); N32.89 Other specified disorders of bladder
CPT/HCPCS: 99283

== ENCOUNTER 2022-03-31 17:33 | Emergency (ER) | payer MEDICAID ==
[~2022-03-31] VITALS: Ht 187.9 cm; Wt 95.2 kg
[~2022-03-31 17:33] MED LIST changes: +OXYB5TAB13 PO
[2022-03-31 17:34] VITALS: BP 161/105
[2022-03-31] MEDS ORDERED: NITROGLYCERIN 0.4 MG SL TABS BTL 25'S SL PRN (17:45)
[2022-03-31] MEDS ORDERED: ASPIRIN 81 MG CHEW (CHILDREN'S ASA) PO ONE (17:45)
[2022-03-31 17:50] LABS: BASOPHILS % (AUTO) 0 % (0-10); EOSINOPHILS # (AUTO) 0.4 10^3/uL (0.0-0.3); EOSINOPHILS % (AUTO) 4 % (0-10); HEMATOCRIT 39 % (40-54); HEMOGLOBIN 13.2 g/dL (13.3-17.7); LYMPHOCYTES # (AUTO) 1.8 10^3/uL (1.0-4.0); LYMPHOCYTES % (AUTO) 22 % (12-44); MEAN CORPUSCULAR HEMOGLOBIN 29 pg (25-34); MEAN CORPUSCULAR HGB CONC 34 g/dL (32-36); MEAN CORPUSCULAR VOLUME 86 fL (80-99); MEAN PLATELET VOLUME 9.2 fL (9.0-12.2); MONOCYTES # (AUTO) 0.7 10^3/uL (0.0-1.0); MONOCYTES % (AUTO) 8 % (0-12); NEUTROPHILS # (AUTO) 5.6 10^3/uL (1.8-7.8); NEUTROPHILS % (AUTO) 66 % (42-75); PLATELET COUNT 333 10^3/uL (130-400); WHITE BLOOD COUNT 8.5 10^3/uL (4.3-11.0)
[2022-03-31 18:00] LABS: ALBUMIN 3.7 GM/DL (3.2-4.5); POTASSIUM 4.2 MMOL/L (3.6-5.0)
[2022-03-31 18:03] LABS: TOTAL PROTEIN 6.9 GM/DL (6.4-8.2)
[2022-03-31 18:05] LABS: BILIRUBIN,TOTAL 0.5 MG/DL (0.1-1.0)
[2022-03-31 18:06] LABS: CREATININE SERUM 1.4 MG/DL (0.60-1.30)
[2022-03-31 18:09] LABS: MAGNESIUM 2.1 MG/DL (1.6-2.4)
[2022-03-31 18:11] LABS: INR 0.9 (0.8-1.4); PROTHROMBIN TIME PATIENT 12.2 SEC (12.2-14.7)
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
--- NOTE | 2022-03-31 18:23 | Diagnostic Imaging Report ---
Chest 1 view, AP/PA only Indication: Chest pain. Comparison: 03/09/2021. Findings: Patchy consolidations have developed in the left mid and lower lung zones. No pleural effusion or pneumothorax. Normal heart size. Impression: 1. New left basilar consolidations are highly likely due to pneumonia. 2. Advise followup PA and lateral chest radiographs in 4 weeks after appropriate medical management to ensure resolution. Dictated by: Dictated on workstation # [id number]
[2022-03-31] MEDS ORDERED: KETOROLAC 30 MG/ML VIAL IVP ONE (18:30)
[2022-03-31] MEDS ORDERED: NS IV 1000 ML 1,000 ML IV SCH (18:30)
== END 2022-03-31 18:59 | disposition left against medical advice (07) ==
LOC: EDUNIT# 17:33 → ER 17:35
DX: R07.89 Other chest pain (principal); F19.10 Other psychoactive substance abuse, uncomplicated; F17.210 Nicotine dependence, cigarettes, uncomplicated; Z28.310 Unvaccinated for COVID-19
CPT/HCPCS: 71045; 80053; 83735; 83874; 84484; 85025; 85379; 85610; 85730; 93005; 93041; 99283; G0480; 36415; 80320